=== PATIENT | female | born 1940 | race Caucasian/White ===

== ENCOUNTER 2021-04-28 00:22 | Day surgery (SDC) | payer MEDICARE, SELFPAY ==
[2021-04-18 09:59] VITALS: BMI 23.8
[2021-04-28 07:44] VITALS: BP 140/62; PULSE 73; RESP 18; O2SAT 100; BMI 23.3
--- NOTE | 2021-04-28 07:45 | WPDANESEPPF ---
Anes - Initial Pre Proc Eval Procedure: Operation Date: 04/28/21 08:30 Proposed Procedures p Screening Colonoscopy - Mio Salvador MD Date/Time: 04/28/21 07:45 Surgeon: Mio Salvador MD Pre Op Diagnosis: neoplasm screening Patient Data Age: 80 Gender: F Height: 1.57 m Weight: 59 kg Allergies Allergy/AdvReac Type Severity Reaction Status Date / Time No Known Allergies Allergy Unknown Verified 04/28/21 07:43 Home Medications Medication Instructions Recorded Confirmed Type albuterol 90 mcg INHALATION QID PRN 04/18/21 04/28/21 History cholecalciferol (vitamin D3) 25 mcg PO DAILY 04/18/21 04/28/21 History [Vitamin D3] duloxetine 30 mg PO DAILY 04/18/21 04/28/21 History mometasone-formoterol [Dulera] 1 inh INHALATION DAILY 04/18/21 04/28/21 History Patient hx anesthesia problems: none Family hx anesthesia problems: none Results Review: All pre-operative results and documents have been reviewed as part of the pre-operative evaluation. [facility] Past Medical History Medical History Asthma Social History Social History Smoking packs per day: 1 Smoking cigarettes per day: 20.0 Years smoked: 25 Smoking pack-years: 25.00 Smoking status: Current every day smoker Tobacco type: cigarettes and e-cigarettes/vaping Additional smoking assessment comments: Vapes now. Alcohol intake: current Living arrangements: with family Spiritual care concerns: No Anes - Eval Final PreProcedure Day of Procedure 04/28/21 07:45 Patient weight: normal Heart: regular rate and rhythm Lungs: wheezes (scattered) Airway: Mallampati scale class II Neurological: alert and oriented Last oral intake: >/= 8 hours ASA classification: III Emergent: no Anesthetic plan: proceed Anesthesia type and monitoring: general GIVS and standard monitoring Results Review: All pre-operative results and documents have been reviewed as part of the pre-operative evaluation. Informed Consent: The patient's anesthetic plan and its attendant risks and benefits were discussed with the patient/family/POA. Questions were solicited and answers provided to the satisfaction of the patient/family/POA.
[2021-04-28 07:53] VITALS: PULSE 84; RESP 18
[2021-04-28] MEDS: ALBUTEROL SULFATE NEB 2.5 MG/3 ML INH INHALATION (07:53)
[2021-04-28 08:04] VITALS: PULSE 81; RESP 16
[2021-04-28] MEDS: LACTATED RINGERS 1,000 ML 150 ML IV CONT (08:13)
--- NOTE | 2021-04-28 08:22 | WPDGICN ---
Assessment and Plan Assessment and plan (1) Encounter for screening colonoscopy: Code(s): Z12.11 - Encounter for screening for malignant neoplasm of colon Status: Acute Assessment and Plan: Patient presents for screening colonoscopy. She may have had polyps in the past occasionally has anal seepage. Plan is for fiber supplementation. Further recommendations will be given after colonoscopy P GI Consult Note Consult date/time: 04/28/21 08:22 HPI: Brittnee Guerrero is a 80 year old female Presents for screening colonoscopy. She reports having had polyps more than 10 years ago. Currently denies abdominal pain her weight appetite are normal. she complains of a occasional anal seepage. She attributes to this to episiotomy after previous . Family history is noncontributory. She has had no bleeding. Review of Systems Review of Systems: All systems reviewed & are unremarkable except as noted in HPI and below PMFSH Past Medical History Medical History Asthma Social History Social History Smoking packs per day: 1 Smoking cigarettes per day: 20.0 Years smoked: 25 Smoking pack-years: 25.00 Smoking status: Current every day smoker Tobacco type: cigarettes and e-cigarettes/vaping Additional smoking assessment comments: Vapes now. Alcohol intake: current Living arrangements: with family Spiritual care concerns: No Meds Home Medications and Allergies Home Medications Medication Instructions Recorded Confirmed Type albuterol 90 mcg INHALATION QID PRN 04/18/21 04/28/21 History cholecalciferol (vitamin D3) 25 mcg PO DAILY 04/18/21 04/28/21 History [Vitamin D3] duloxetine 30 mg PO DAILY 04/18/21 04/28/21 History mometasone-formoterol [Dulera] 1 inh INHALATION DAILY 04/18/21 04/28/21 History Allergies Allergy/AdvReac Type Severity Reaction Status Date / Time No Known Allergies Allergy Unknown Verified 04/28/21 07:43 Vital Signs Vital Signs - 24 hr 04/28/21 07:44 04/28/21 07:53 04/28/21 08:04 Pulse Rate 73 84 81 Respiratory Rate 18 18 16 Blood Pressure 140/62 Pulse Oximetry 100 Exam Narrative: Physical exam reveals patient be alert. Vital signs stable. HEENT exam is unremarkable. Patient is anicteric. Lungs are clear to auscultation and percussion. Heart is without murmur or extra sounds. Abdominal exam bowel sounds are present soft nontender with no organomegaly. Digital external rectal exam is normal.
[2021-04-28 08:56] VITALS: BP 101/63; PULSE 75; RESP 17; O2SAT 100
[2021-04-28 09:06] VITALS: BP 127/76; PULSE 70; RESP 23; O2SAT 100
[2021-04-28 09:16] VITALS: BP 152/68; PULSE 57; RESP 17; O2SAT 100
== END 2021-04-28 09:26 | disposition home or self-care (01) ==
PROVIDERS: PCP Family Medicine; Visit Provider Internal Medicine Gastroenterology
PROC: 0DJD8ZZ Inspection of Lower Intestinal Tract, Via Natural or Artificial Opening Endoscopic (ICD-10-PCS; CPT 45378; principal; 2021-04-28 08:30)
DX: Z12.11 Encounter for screening for malignant neoplasm of colon (principal); K64.8 Other hemorrhoids; K57.30 Diverticulosis of large intestine without perforation or abscess without bleeding; K63.5 Polyp of colon; F17.290 Nicotine dependence, other tobacco product, uncomplicated; Z79.51 Long term (current) use of inhaled steroids; J45.909 Unspecified asthma, uncomplicated
CPT/HCPCS: 45385; 88305; 94640; J2704; J7120

== ENCOUNTER 2021-11-17 12:03 | Outpatient (CLI) | payer MEDICARE, OTHER, SELFPAY ==
--- NOTE | ~2021-11-17 | XR_ITS ---
XR chest 2V DATE: 11/17/2021 12:38 INDICATION: COPD TECHNIQUE: 2 views COMPARISON: None FINDINGS: There is bilateral hyperinflation consistent with history of COPD. No pulmonary infiltrate or consolidation, pleural effusion or pulmonary vascular congestion or pneumo thorax. Normal heart size. Aortic arch calcification. Diffuse osteopenia. IMPRESSION: Bilateral hyperinflation consistent with COPD No active cardiac pulmonary disease Aortic atherosclerosis Osteopenia Reviewed, dictated and finalized at location A.
[2021-11-17 12:21] LABS: Eosinophils Absolute Auto 0.19 K/mm3 (0.02-0.50); Eosinophils Percent Auto 1.9 % (1.0-6.0); Hematocrit 42.4 % (35.0-42.0); Hemoglobin 13.8 g/dL (11.7-13.8); Immature Granulocyte Absolute 0.04 K/mm3 (0.00-0.00); Immature Granulocyte Percent A 0.4 % (0.0-0.0); Lymphocytes Absolute Auto 3.12 K/mm3 (1.10-4.50); Lymphocytes Percent Auto 31.4 % (18.0-42.0); Mean Corpuscular HGB Conc 32.5 g/dL (32.0-36.0); Mean Corpuscular Hemoglobin 31.4 pg (27.0-31.0); Mean Corpuscular Volume 96.6 fL (78.0-102.0); Mean Platelet Volume 9.3 fl (9.2-11.8); Monocytes Absolute Auto 0.42 K/mm3 (0.10-0.90); Monocytes Percent Auto 4.2 % (2.0-11.0); Neutrophils Absolute Auto 6.1 K/mm3 (1.7-7.2); Neutrophils Percent Auto 61.1 % (50.0-70.0); Platelet Count Result 349 K/mm3 (150-420); Red Blood Count 4.39 M/mm3 (4.20-5.40); Red Cell Distribution Width 13.3 % (11.6-14.4); White Blood Count 9.9 K/mm3 (4.8-10.8)
[2021-11-17 12:25] LABS: Add Urine Microscopic? NO; Appearance Urine Clear (Clear); Bilirubin Urine Negative (Negative); Blood Urine Negative (Negative); Color Urine Light Yellow (Yellow); Glucose Urine UA Negative (Negative); Ketones Urine Negative (Negative); Leukocyte Esterase Ur Negative LEU/UL (Negative); Nitrate Urine Negative (Negative); Protein Urine Negative (Negative); Urobilinogen Urine 0.2 mg/dL (0.2-1.0)
[2021-11-17 13:05] LABS: Alanine Aminotransferase 23 U/L (14-59); Albumin Level 4.3 g/dL (3.4-5.0); Alkaline Phosphatase 43 U/L (46-116); Anion Gap 7 mmol/L (8-16); Aspartate Amino Transferase 16 U/L (15-37); Bilirubin,Total 0.7 mg/dL (0.00-1.00); Blood Urea Nitrogen 16 mg/dL (7-18); Calcium 9.9 mg/dL (8.5-10.1); Carbon Dioxide 30 mmol/L (21-32); Chloride 102 mmol/L (98-108); Cholesterol 236 mg/dL (0-200); Estimated Glomerular Filt Rate 55; Free T3 2.47 pg/mL (2.18-3.98); Free T4 Free Thyroxine 0.89 ng/dL (0.76-1.46); Glucose 100 mg/dL (70-99); HDL Direct 56 mg/dL (40-60); LDL Cholesterol Calculated 166 mg/dL (<130); Osmolality Calculated 289 mOsm/kg (285-295); Sodium 139 mmol/L (136-145); Thyroid Stimulating Hormone 2.07 uIU/mL (0.36-3.74); Total Protein 7.7 g/dL (6.4-8.2); Triglycerides 71 mg/dL (0-150)
[2021-11-17 13:07] LABS: CRP < 0.2 mg/dL (0.0-0.9)
[2021-11-20 22:58] LABS: Vitamin D 1,25 (OH)2 Total 38 pg/mL (18-72); Vitamin D2 1,25 (OH)2 <8 pg/mL; Vitamin D3 1,25 (OH)2 38 pg/mL
[2021-11-21 14:50] LABS: Parathyroid Intact 23 pg/mL (14-64); Vitamin D 25 Hydroxy 54 ng/mL (30-100)
== END 2021-11-17 12:04 | disposition home or self-care (01) ==
LOC: CHSLAB 12:09
PROVIDERS: PCP Internal Medicine; Visit Provider Internal Medicine
DX: R42 Dizziness and giddiness (principal); I67.9 Cerebrovascular disease, unspecified; J45.909 Unspecified asthma, uncomplicated; J44.9 Chronic obstructive pulmonary disease, unspecified; E83.52 Hypercalcemia; Z13.6 Encounter for screening for cardiovascular disorders
CPT/HCPCS: 36415; 71046; 80053; 80061; 81003; 82306; 82652; 83970; 84439; 84443; 84481; 85025; 86140; 93005

== ENCOUNTER 2021-11-28 12:26 | Outpatient (CLI) | payer MEDICARE, OTHER, SELFPAY ==
--- NOTE | ~2021-11-28 | US_ITS ---
EXAMINATION: US carotid duplex BI DATE: 11/28/2021 12:54 INDICATION: Dizziness TECHNIQUE: Grayscale, color Doppler, and pulsed Doppler images of the cervical carotid arteries were obtained. The degree of vessel stenosis is placed in one of the following categories: normal, <50%, 5 0-69%, >=70% but less than near-occlusion, near-occlusion, or total occlusion. Note that percent sten osis relative to normal distal artery lumen diameter is indirectly measured from velocity measurement s as described by Abel, et al. Radiology 2003; 229:340-346. Notes: Normal: Peak systolic velocity <125 centimeters/sec and no plaque <50%. Peak systolic velocity <125 ( EDV <40; ICA/CCA PSV ratio <2.0; used these factors only a tandem lesions or low cardiac output or co ntralateral disease) 50-69 %: PSV 125-230 (EDV 40-100; ratio 2-4) >= 70% but less than near occlusion: PSV greater than 230 (EDV > 100; ratio> 4.0) Near Occlusion: PSV that is variable; markedly narrowed lumen Occlusion: Absent flow on color/spectral Doppler and no lumen on marin scale. COMPARISON: None. FINDINGS: RIGHT: The right common carotid artery (CCA) peak systolic velocity (PSV) is 94 cm/s. The right internal car otid artery (ICA) PSV is 94 cm/s. The right ICA end-diastolic velocity (EDV) is 24 cm/s. The right IC A/CCA PSV ratio is 1.0. The external carotid artery (ECA) PSV is 93 cm/s. There is antegrade flow in the right vertebral artery. LEFT: The left CCA PSV is 1:30 cm/s. The left ICA PSV is 92 cm/s. The left ICA EDV is 21 cm/s. The left ICA /CCA PSV ratio is 0.7. The ECA PSV is 94 cm/s. There is antegrade flow in the left vertebral artery. IMPRESSION: 1. Less than 50% stenosis in the right internal carotid artery by sonographic criteria. 2. Less than 50% stenosis in the left internal carotid artery by sonographic criteria. Reviewed, dictated and finalized at location A. IMPRESSION: 1. Less than 50% stenosis in the right internal carotid artery by sonographic pili forte. 2. Less than 50% stenosis in the left internal carotid artery by sonographic nery foy.
== END 2021-11-28 12:27 | disposition home or self-care (01) ==
LOC: CHSIMG 12:29
PROVIDERS: PCP Internal Medicine; Visit Provider Internal Medicine
DX: R42 Dizziness and giddiness (principal); I67.9 Cerebrovascular disease, unspecified; J45.909 Unspecified asthma, uncomplicated; J44.9 Chronic obstructive pulmonary disease, unspecified; E83.52 Hypercalcemia
CPT/HCPCS: 93880

== ENCOUNTER 2022-03-23 15:35 | Emergency (ER) | payer MEDICARE, OTHER, SELFPAY ==
[2022-03-23] VITALS (21 sets, daily range): BP systolic 62–92; BP diastolic 44–75; PULSE 62–73; RESP 12–27; TEMP 35.8; O2SAT 95–100
--- NOTE | 2022-03-23 15:46 | ED.DIZZY ---
HPI - Dizziness General Chief Complaint: Dizziness Stated Complaint: dizzy spell/sick to stomach/shaky Time Seen by Provider: 03/23/22 15:37 Source: patient and RN notes reviewed Mode of arrival: ambulatory Limitations: no limitations History of Present Illness MD elicited complaint: dizziness and lightheadedness Onset (ago): day(s) (2) Description: lightheadedness Exacerbating factors: movement/ambulation Relieving factors: rest Associated symptoms: nausea, vomiting, malaise and other (diarrhea) Related Data Home Medications Medication Instructions Recorded Confirmed albuterol 90 mcg/actuation aerosol 90 mcg inhalation QID PRN Dyspnea 04/18/21 03/23/22 inhaler cholecalciferol (vitamin D3) 25 25 mcg PO DAILY 04/18/21 03/23/22 mcg (1,000 unit) tablet (Vitamin D3) duloxetine 30 mg capsule,delayed 30 mg PO DAILY 04/18/21 03/23/22 release mometasone-formoterol HFA 50 mcg-5 1 inh inhalation DAILY 04/18/21 03/23/22 mcg/actuation aerosol inhaler (Dulera) Allergies Allergy/AdvReac Type Severity Reaction Status Date / Time No Known Allergies Allergy Unknown Verified 03/23/22 16:04 Review of Systems Review of Systems: All systems reviewed & are unremarkable except as noted in HPI and below Constitutional: Constitutional: Reports fatigue Respiratory: Respiratory: Reports cough Genitourinary: Genitourinary: Denies dysuria PMFSH Past Medical History Medical History (Updated 03/23/22 @ 17:59 by Mio Griffith MD) Asthma Depression Surgical History Surgical History (Updated 03/23/22 @ 16:16 by Mio Griffith MD) No pertinent past surgical history Social History Social History Smoking packs per day: 1 Smoking cigarettes per day: 20.0 Years smoked: 25 Smoking pack-years: 25.00 Smoking status: Current every day smoker Tobacco type: cigarettes and e-cigarettes/vaping Additional smoking assessment comments: Vapes now. Alcohol intake: current Spiritual care concerns: No Exam Const: General: healthy appearing, no acute distress and alert Nutritional Appearance: well nourished and thin Orientation/consciousness: patient oriented x3 Limitations: no limitations HENMT: Head: normal to inspection Face and sinus: normal facial exam Eyes: Conjunctivae: conjunctivae normal Pupils: Equal, round and reactive pupils present EOM: EOMs intact bilaterally Neck: Neck: normal visual inspection Resp: Effort & Inspection: normal respiratory effort Auscultation: clear to auscultation bilaterally Cardio: Rate: regular rate Rhythm: regular rhythm GI: GI Palp: Yes Soft to palpation and No Tenderness to palpation present (GI) Auscultation: normal bowel sounds Back/Spine/Pelvis: Cervical Spine: cervical ROM normal Thoracic/Lumbar Spine: thoraco-lumbar ROM normal Skin: General skin exam: normal color Rashes: no rashes Neuro: General: patient oriented x3, moves all extremities, no focal motor deficits and CN's II-XI intact bilaterally Cranial nerves: Yes Nystagmus not present Speech: normal speech Gait exam (Neuro): Normal gait present Extrem: General: normal to inspection and no clubbing, cyanosis or edema Psych: Mental Status: mental status grossly normal Affect: normal affect Attitude: cooperative Course Course Emergency Course: Patient given 2 L normal saline in her blood pressure remains low. All of her labs do not show any significant abnormalities I believe her elevated white count goes along with her elevated hemoglobin and her elevated kidney functions showing some dehydration. Patient advised to eat a brat diet and plenty of fluids. Follow up with her primary care physician any worsening symptoms or her dizziness persists. Vital Signs Vital signs: Vital Signs Temperature 35.8 C L 03/23/22 15:40 Pulse Rate 64 03/23/22 15:40 Respiratory Rate 16 03/23/22 15:40 Blood Pressure 92/44 L 03/23/22 15:
[2022-03-23] MEDS: SODIUM CHLORIDE 0.9% IV 1,000 ML 1000 ML (16:01)
[2022-03-23] MEDS: SODIUM CHLORIDE 0.9% IV 1,000 ML 999 ML IV CONT ×2 (16:01→16:48)
[2022-03-23 16:09] LABS: Basophils Absolute Auto 0.07 K/mm3 (0.00-0.10); Basophils Percent Auto 0.5 % (0.0-1.0); Eosinophils Absolute Auto 0.24 K/mm3 (0.02-0.50); Eosinophils Percent Auto 1.6 % (1.0-6.0); Hematocrit 41.7 % (35.0-42.0); Hemoglobin 13.9 g/dL (11.7-13.8); Immature Granulocyte Absolute 0.14 K/mm3 (0.00-0.00); Immature Granulocyte Percent A 0.9 % (0.0-0.0); Lymphocytes Absolute Auto 3.19 K/mm3 (1.10-4.50); Lymphocytes Percent Auto 21.2 % (18.0-42.0); Mean Corpuscular HGB Conc 33.3 g/dL (32.0-36.0); Mean Corpuscular Hemoglobin 32.2 pg (27.0-31.0); Mean Corpuscular Volume 96.5 fL (78.0-102.0); Mean Platelet Volume 9.5 fl (9.2-11.8); Monocytes Absolute Auto 0.94 K/mm3 (0.10-0.90); Monocytes Percent Auto 6.3 % (2.0-11.0); Neutrophils Absolute Auto 10.4 K/mm3 (1.7-7.2); Neutrophils Percent Auto 69.5 % (50.0-70.0); Platelet Count Result 335 K/mm3 (150-420); Red Blood Count 4.32 M/mm3 (4.20-5.40); Red Cell Distribution Width 13.2 % (11.6-14.4)
--- NOTE | 2022-03-23 16:20 | PC.NURSE ---
PT NOTED TO HYPOTENSIVE UPON ASSESSMENT, ERP NOTIFIED. IV SITE ESTABLISHED AND IVF INFUSING ORDERED. AT BEDSIDE. PT DENIES ANY COMPLAINTS. HR 66, NAD NOTED. WILL CONTINUE TO MONITOR.
[2022-03-23 16:24] LABS: Alanine Aminotransferase 26 U/L (14-59); Albumin Level 3.7 g/dL (3.4-5.0); Alkaline Phosphatase 38 U/L (46-116); Anion Gap 10 mmol/L (8-16); Aspartate Amino Transferase 13 U/L (15-37); Bilirubin,Total 0.4 mg/dL (0.00-1.00); Blood Urea Nitrogen 27 mg/dL (7-18); Calcium 9.1 mg/dL (8.5-10.1); Carbon Dioxide 26 mmol/L (21-32); Chloride 102 mmol/L (98-108); Estimated CRCL calculation 25 ml/min; Estimated Glomerular Filt Rate 39; Glucose 134 mg/dL (70-99); Magnesium 2.1 mg/dL (1.8-2.4); Osmolality Calculated 293 mOsm/kg (285-295); Potassium 3.6 mmol/L (3.5-5.1); Sodium 138 mmol/L (136-145); Total Protein 6.7 g/dL (6.4-8.2)
[2022-03-23 16:25] LABS: CRP < 0.2 mg/dL (0.0-0.9)
--- NOTE | 2022-03-23 16:29 | PC.NURSE ---
WARM BLANKET PROVIDED.
[2022-03-23 16:45] LABS: SARS-CoV-2 RNA PCR Negative (Negative)
--- NOTE | 2022-03-23 16:51 | PC.NURSE ---
NO CHANGE IN PT STATUS, ANOTHER WARM BLANKET PROVIDED. REMAINS AT BEDSIDE AND PT DENIES COMPLAINTS. WILL CONTINUE TO MONITOR.
[2022-03-23 17:33] LABS: Troponin I 12.1 ng/L (0.00-60.4)
--- NOTE | 2022-03-23 17:46 | PC.NURSE ---
NO CHANGE IN PT STATUS. HAS LEFT, IS TO RETURN. WILL CONTINUE TO MONITOR.
== END 2022-03-23 18:05 | disposition home or self-care (01) ==
PROVIDERS: Emergency Provider Emergency Medicine; PCP Internal Medicine
DX: E86.0 Dehydration (principal); K52.9 Noninfective gastroenteritis and colitis, unspecified; Z20.822 Contact with and (suspected) exposure to COVID-19; F17.200 Nicotine dependence, unspecified, uncomplicated
CPT/HCPCS: 36415; 80053; 83735; 84484; 85025; 86140; 96360; 96361; 99284; C9803; J7030; U0003; U0005

== ENCOUNTER 2022-03-27 12:14 | Outpatient (CLI) | payer MEDICARE, OTHER, SELFPAY ==
[2022-03-27 12:33] LABS: Basophils Absolute Auto 0.09 K/mm3 (0.00-0.10); Basophils Percent Auto 0.7 % (0.0-1.0); Eosinophils Absolute Auto 0.25 K/mm3 (0.02-0.50); Hemoglobin 14.2 g/dL (11.7-13.8); Immature Granulocyte Absolute 0.08 K/mm3 (0.00-0.00); Immature Granulocyte Percent A 0.6 % (0.0-0.0); Lymphocytes Absolute Auto 2.79 K/mm3 (1.10-4.50); Lymphocytes Percent Auto 22.2 % (18.0-42.0); Mean Corpuscular HGB Conc 32.3 g/dL (32.0-36.0); Mean Corpuscular Hemoglobin 31.3 pg (27.0-31.0); Mean Corpuscular Volume 97.1 fL (78.0-102.0); Mean Platelet Volume 9.4 fl (9.2-11.8); Monocytes Absolute Auto 0.68 K/mm3 (0.10-0.90); Monocytes Percent Auto 5.4 % (2.0-11.0); Neutrophils Absolute Auto 8.7 K/mm3 (1.7-7.2); Neutrophils Percent Auto 69.1 % (50.0-70.0); Platelet Count Result 336 K/mm3 (150-420); Red Blood Count 4.53 M/mm3 (4.20-5.40); Red Cell Distribution Width 13.2 % (11.6-14.4); White Blood Count 12.6 K/mm3 (4.8-10.8)
[2022-03-27 12:48] LABS: Albumin Level 3.9 g/dL (3.4-5.0); Alkaline Phosphatase 47 U/L (46-116); Anion Gap 9 mmol/L (8-16); Aspartate Amino Transferase 14 U/L (15-37); Bilirubin,Total 0.8 mg/dL (0.00-1.00); Blood Urea Nitrogen 16 mg/dL (7-18); Carbon Dioxide 27 mmol/L (21-32); Chloride 100 mmol/L (98-108); Estimated Glomerular Filt Rate 54; Glucose 110 mg/dL (70-99); Osmolality Calculated 284 mOsm/kg (285-295); Potassium 3.9 mmol/L (3.5-5.1); Sodium 136 mmol/L (136-145); Total Protein 7.4 g/dL (6.4-8.2)
[2022-03-27 12:57] LABS: Alanine Aminotransferase 25 U/L (14-59)
[2022-03-29 11:19] LABS: Cortisol Random 7.3 mcg/dL (***)
== END 2022-03-27 12:15 | disposition home or self-care (01) ==
LOC: CHSLAB 12:18
PROVIDERS: PCP Internal Medicine; Visit Provider Internal Medicine
DX: R79.89 Other specified abnormal findings of blood chemistry (principal); D72.829 Elevated white blood cell count, unspecified; R42 Dizziness and giddiness
CPT/HCPCS: 36415; 80053; 82533; 85025

== ENCOUNTER 2022-04-14 07:47 | Outpatient (CLI) | payer MEDICARE, OTHER, SELFPAY ==
--- NOTE | ~2022-04-14 | MR_ITS ---
EXAMINATION: MR brain/brain stem wo con DATE: 04/14/2022 08:55 INDICATION: Dizziness TECHNIQUE: Magnetic resonance imaging (MRI) of the brain and brainstem was performed without intraven ous contrast. Sequences included sagittal and axial T1-weighted SE, axial diffusion-weighted FS SE, a xial T2*-weighted GRE, axial T2-weighted FLAIR Propeller, and axial T2-weighted Propeller. Apparent d iffusion coefficient (ADC) maps were created. COMPARISON: None. FINDINGS: No acute intracranial hemorrhage, infarction, mass or mass effect. No ventriculomegaly or m idline shift. There are scattered moderate periventricular and subcortical white matter changes, most likely related to small vessel ischemic disease (microangiopathy). Structures of the posterior fossa including 7/8th cranial nerve complexes are normal. Orbits are symmetric without disconjugate gaze. Paranasal sinuses are unremarkable. Midline sagittal images demonstrate a normal corpus callosum and craniovertebral junction. No abnormality of the sella turcica. IMPRESSION: 1. No acute intracranial abnormality. 2: Chronic age-related findings. Reviewed, dictated and finalized at location A.
[2022-04-14 08:41] LABS: Appearance Urine Cloudy (Clear); Bilirubin Urine Negative (Negative); Color Urine Light Yellow (Yellow); Glucose Urine UA Negative (Negative); Hematocrit 41.5 % (35.0-42.0); Hemoglobin 13.4 g/dL (11.7-13.8); Ketones Urine Negative (Negative); Leukocyte Esterase Ur 2+ (Negative); Mean Corpuscular HGB Conc 32.3 g/dL (32.0-36.0); Mean Corpuscular Hemoglobin 31.2 pg (27.0-31.0); Mean Corpuscular Volume 96.7 fL (78.0-102.0); Mean Platelet Volume 8.9 fl (9.2-11.8); Nitrate Urine Positive (Negative); Platelet Count Result 346 K/mm3 (150-420); Protein Urine Negative (Negative); Red Blood Count 4.29 M/mm3 (4.20-5.40); Red Cell Distribution Width 13.3 % (11.6-14.4); Specific Grav Ur 1.015 (1.010-1.020); Urobilinogen Urine 0.2 mg/dL (0.2-1.0); White Blood Count 10.3 K/mm3 (4.8-10.8)
[2022-04-14 08:45] LABS: Add Urine Microscopic? YES; Bacteria Urine 3+ /hpf; Blood Urine Trace-Intact (Negative); RBC Urine 0-2 /hpf (0-2); Renal Epithelial Cells Urine Few /hpf; Squamous Epithelial Cell Urine Few /hpf (Few); Transitional Epi Cells Urine Few /hpf; WBC Urine 21-30 /hpf (0-3)
[2022-04-14 08:51] LABS: Alanine Aminotransferase 24 U/L (14-59); Albumin Level 3.5 g/dL (3.4-5.0); Alkaline Phosphatase 51 U/L (46-116); Anion Gap 4 mmol/L (8-16); Aspartate Amino Transferase 13 U/L (15-37); Bilirubin,Total 0.7 mg/dL (0.00-1.00); Blood Urea Nitrogen 17 mg/dL (7-18); Calcium 8.6 mg/dL (8.5-10.1); Carbon Dioxide 30 mmol/L (21-32); Chloride 105 mmol/L (98-108); Estimated Glomerular Filt Rate 49; Glucose 106 mg/dL (70-99); Osmolality Calculated 289 mOsm/kg (285-295); Potassium 4.1 mmol/L (3.5-5.1); Sodium 139 mmol/L (136-145); Total Protein 6.5 g/dL (6.4-8.2)
[2022-04-14 09:07] LABS: Band Neutrophils Percent 0 % (0-6); Basophils Percent Manual 1 % (0-1); Eosinophils Absolute Manual 0.92 K/mm3 (0.02-0.5); Eosinophils Percent Manual 9 % (1-6); Lymphocytes Absolute Manual 3.91 K/mm3 (1.1-4.5); Lymphocytes Percent Manual 38 % (18-44); Monocytes Absolute Manual 0.51 K/mm3 (0.1-0.90); Monocytes Percent Manual 5 % (3-9); Neutrophils Absolute Manual 4.84 K/mm3 (1.7-7.2); Neutrophils Percent Manual 47 % (46-73); Platelet Estimate Adequate (Adequate); Total Cells Counted 100
== END 2022-04-14 07:48 | disposition home or self-care (01) ==
LOC: CHSIMG 07:49
PROVIDERS: PCP Internal Medicine; Visit Provider Internal Medicine
DX: R79.89 Other specified abnormal findings of blood chemistry (principal); D72.829 Elevated white blood cell count, unspecified; R42 Dizziness and giddiness
CPT/HCPCS: 36415; 70551; 80053; 81001; 85025

== ENCOUNTER 2023-04-15 09:30 | Outpatient (CLI) | payer MEDICARE, SELFPAY ==
[2023-04-15 09:50] LABS: Hematocrit 40.7 % (35.0-42.0); Hemoglobin 13.2 g/dL (11.7-13.8); Immature Granulocyte Percent A 0.3 % (0.0-0.0); Lymphocytes Percent Auto 39.6 % (18.0-42.0); Mean Corpuscular HGB Conc 32.4 g/dL (32.0-36.0); Mean Corpuscular Hemoglobin 31.8 pg (27.0-31.0); Mean Corpuscular Volume 98.1 fL (78.0-102.0); Mean Platelet Volume 8.8 fl (9.2-11.8); Monocytes Percent Auto 5.5 % (2.0-11.0); Neutrophils Percent Auto 47.2 % (50.0-70.0); Platelet Count Result 304 K/mm3 (150-420); Red Blood Count 4.15 M/mm3 (4.20-5.40); Red Cell Distribution Width 13.1 % (11.6-14.4); White Blood Count 7.2 K/mm3 (4.8-10.8)
[2023-04-15 09:51] LABS: Basophils Percent Auto 1.4 % (0.0-1.0); Eosinophils Absolute Auto 0.43 K/mm3 (0.02-0.50); Immature Granulocyte Absolute 0.02 K/mm3 (0.00-0.00); Lymphocytes Absolute Auto 2.86 K/mm3 (1.10-4.50); Neutrophils Absolute Auto 3.4 K/mm3 (1.7-7.2)
[2023-04-15 12:47] LABS: Alanine Aminotransferase 50 U/L (14-59); Albumin Level 3.8 g/dL (3.4-5.0); Alkaline Phosphatase 40 U/L (46-116); Anion Gap 9 mmol/L (8-16); Aspartate Amino Transferase 28 U/L (15-37); Bilirubin,Total 0.7 mg/dL (0.00-1.00); Blood Urea Nitrogen 14 mg/dL (7-18); Calcium 9.3 mg/dL (8.5-10.1); Carbon Dioxide 28 mmol/L (21-32); Chloride 105 mmol/L (98-108); Estimated Glomerular Filt Rate 57; Glucose 98 mg/dL (70-99); Osmolality Calculated 294 mOsm/kg (285-295); Potassium 4.4 mmol/L (3.5-5.1); Sodium 142 mmol/L (136-145); Total Protein 6.6 g/dL (6.4-8.2)
== END 2023-04-15 09:31 | disposition home or self-care (01) ==
LOC: CHSLAB 09:39
PROVIDERS: PCP Internal Medicine; Visit Provider Internal Medicine Cardiovascular Disease
DX: R06.00 Dyspnea, unspecified (principal)
CPT/HCPCS: 36415; 80053; 85025

== ENCOUNTER 2023-04-24 10:33 | Outpatient (CLI) | payer MEDICARE, SELFPAY ==
[2023-04-24 11:00] LABS: Prothrombin Time 10.6 Seconds (9.50-12.10)
== END 2023-04-24 10:34 | disposition home or self-care (01) ==
LOC: CHSLAB 10:36
PROVIDERS: PCP Internal Medicine
DX: I70.8 Atherosclerosis of other arteries (principal)
CPT/HCPCS: 36415; 85610

== ENCOUNTER 2023-06-11 11:48 | Outpatient (CLI) | payer MEDICARE, SELFPAY ==
--- NOTE | ~2023-06-11 | XR_ITS ---
EXAMINATION: XR lumbar spine min 4V DATE: 06/11/2023 12:23 INDICATION: Low back pain TECHNIQUE: Anteroposterior, lateral, and bilateral oblique views of the lumbar spine, and cone-down l ateral view of the lumbosacral junction were obtained. COMPARISON: None. FINDINGS: There are 20 degrees of thoracolumbar levoscoliosis. There are 4 mm of anterolisthesis of L 3 on L4. There is no fracture. There is moderate loss of intervertebral disc space height at L4-5. Th ere is moderate facet joint osteoarthritis from L3-4 through L5-S1. Calcified atherosclerosis is note d. The vertebral body heights are maintained. IMPRESSION: 1. Moderate lumbar spondylosis without acute findings. Reviewed, dictated and finalized at location F. MANAGER
--- NOTE | ~2023-06-11 | XR_ITS ---
XR hip LT min 2V 06/11/2023 12:23 Indication: Left hip pain Procedure: 2 views left hip Comparison: No prior studies for comparison. Findings: No fracture or traumatic malalignment. No significant soft tissue abnormality. There is ath erosclerosis. There are pelvic phleboliths. There is lower lumbar spondylosis. There is a healed left inferior pubic ramus fracture. Impression: 1: No acute fracture. Reviewed, dictated and finalized at location L. EL OPERATOR Impression: 1: No acute fracture.
== END 2023-06-11 11:49 | disposition home or self-care (01) ==
LOC: CHSIMG 11:50
PROVIDERS: PCP Internal Medicine; Visit Provider Nurse Practitioner Family
DX: M54.50 Low back pain, unspecified (principal); M25.552 Pain in left hip; M43.06 Spondylolysis, lumbar region
CPT/HCPCS: 72110; 73502

== ENCOUNTER 2024-04-17 12:12 | Outpatient (CLI) | payer MEDICARE, SELFPAY ==
[2024-04-17 12:33] LABS: Appearance Urine Clear (Clear); Basophils Absolute Auto 0.11 K/mm3 (0.00-0.10); Basophils Percent Auto 1.2 % (0.0-1.0); Bilirubin Urine Negative (Negative); Blood Urine Trace-intact (Negative); Color Urine Light Yellow (Yellow); Eosinophils Absolute Auto 0.21 K/mm3 (0.02-0.50); Eosinophils Percent Auto 2.3 % (1.0-6.0); Glucose Urine UA Negative (Negative); Hematocrit 40.6 % (35.0-42.0); Hemoglobin 13.5 g/dL (11.7-13.8); Immature Granulocyte Absolute 0.03 K/mm3 (0.00-0.00); Immature Granulocyte Percent A 0.3 % (0.0-0.0); Ketones Urine Negative (Negative); Leukocyte Esterase Ur Negative LEU/UL (Negative); Lymphocytes Absolute Auto 2.93 K/mm3 (1.10-4.50); Lymphocytes Percent Auto 32.3 % (18.0-42.0); Mean Corpuscular HGB Conc 33.3 g/dL (32-36); Mean Corpuscular Hemoglobin 31.5 pg (27.0-31.0); Mean Corpuscular Volume 94.9 fL (78.0-102.0); Mean Platelet Volume 9.4 fl (9.2-11.8); Monocytes Absolute Auto 0.45 K/mm3 (0.10-0.90); Neutrophils Absolute Auto 5.33 K/mm3 (1.70-7.20); Neutrophils Percent Auto 58.9 % (50.0-70.0); Nitrate Urine Negative (Negative); Platelet Count Result 287 K/mm3 (150-420); Protein Urine Negative (Negative); Red Blood Count 4.28 M/mm3 (4.20-5.40); Urobilinogen Urine 0.2 mg/dL (0.2-1.0); White Blood Count 9.1 K/mm3 (4.8-10.8)
[2024-04-17 12:48] LABS: Add Urine Microscopic? YES; RBC Urine 0-2 /hpf (0-2); Squamous Epithelial Cell Urine Few /hpf (Few); WBC Urine 0-3 /hpf (0-3)
[2024-04-17 12:49] LABS: Bacteria Urine 1+ /hpf
[2024-04-17 14:18] LABS: Alanine Aminotransferase 34 U/L (14-59); Albumin Level 4.1 g/dL (3.4-5.0); Alkaline Phosphatase 43 U/L (46-116); Anion Gap 11 mmol/L (4-12); Aspartate Amino Transferase 21 U/L (15-37); Bilirubin,Total 0.7 mg/dL (0.00-1.00); Blood Urea Nitrogen 20 mg/dL (7-18); Calcium 9.4 mg/dL (8.5-10.1); Carbon Dioxide 28 mmol/L (21-32); Chloride 102 mmol/L (98-108); Cholesterol 187 mg/dL (0-200); Estimated Glomerular Filt Rate 53; Glucose 97 mg/dL (70-99); HDL Direct 60 mg/dL (40-60); LDL Cholesterol Calculated 114 mg/dL (<130); Osmolality Calculated 294 mOsm/kg (285-295); Sodium 141 mmol/L (136-145); Triglycerides 64 mg/dL (0-150); Vitamin B12 445 pg/mL (193-986)
[2024-04-17 14:28] LABS: CRP < 0.5 mg/dL (0.0-0.9)
[2024-04-21 01:59] LABS: Red Blood Cell Folate 582 ng/mL RBC (>280)
[2024-04-22 08:34] LABS: Methylmalonic Acid 164 nmol/L (85-423)
== END 2024-04-17 12:13 | disposition home or self-care (01) ==
PROVIDERS: PCP Internal Medicine; Visit Provider Internal Medicine
DX: I73.9 Peripheral vascular disease, unspecified (principal); R32 Unspecified urinary incontinence; E53.8 Deficiency of other specified B group vitamins; R41.81 Age-related cognitive decline; Z79.899 Other long term (current) drug therapy
CPT/HCPCS: 36415; 80053; 80061; 81001; 82607; 82747; 83921; 84443; 85025; 86140

== ENCOUNTER 2024-04-23 09:45 | Outpatient (CLI) | payer MEDICARE, SELFPAY ==
[2024-04-23 09:58] VITALS: BP 131/74; PULSE 72; RESP 14; TEMP 36.6; O2SAT 100; BMI 22.6
[2024-04-23] MEDS: DENOSUMAB 60 MG/ML SYRINGE SUB-Q (10:10)
--- NOTE | 2024-04-23 10:28 | PC.NURSE ---
Patient here for every 6 month Prolia injection. Reports has received injection x2 last year without problems. Education given. No concerns voiced. Injection administered. SEE MAR/patient care notes.
== END 2024-04-23 10:37 | disposition home or self-care (01) ==
PROVIDERS: PCP Internal Medicine; Visit Provider Internal Medicine
DX: M81.0 Age-related osteoporosis without current pathological fracture (principal)
CPT/HCPCS: 96372; J0897

== ENCOUNTER 2024-10-27 11:50 | Outpatient (CLI) | payer MEDICARE, SELFPAY ==
--- NOTE | ~2024-10-27 | XR_ITS ---
XR chest 2V Ordering provider: Javier Dalal MD History: 84 years Female with . chronic cough X 2 months . Comparison: None. FINDINGS: MEDIASTINUM: The cardiac silhouette is not enlarged. LUNGS: No infiltrates, effusions or pneumothorax. OTHER: No free air under the diaphragm. Levoscoliosis in the lumbar area. Degenerative spine. IMPRESSION: No acute cardiopulmonary pathology. Reviewed, dictated and finalized at location A.
[2024-10-27 12:33] LABS: Hematocrit 40.5 % (35.0-42.0); Hemoglobin 13.1 g/dL (11.7-13.8); Mean Corpuscular HGB Conc 32.3 g/dL (32-36); Mean Corpuscular Hemoglobin 31.2 pg (27.0-31.0); Mean Corpuscular Volume 96.4 fL (78.0-102.0); Platelet Count Result 355 K/mm3 (150-420); Red Cell Distribution Width 13.3 % (11.6-14.4); White Blood Count 8.7 K/mm3 (4.8-10.8)
--- OUTSIDE RECORDS SUMMARY | 2024-10-27 13:18 | XMS_ITS | Encounter Summary ---
Author Organization [facility] Address [address] [place] [address] Phone Care Team Providers Care Clinical Services Director Name Role Phone Sylvester Mcarthur MD Primary Care Provider [phone] Javier Dalal MD Primary Care Provider [phone] Encounter Details Date Type Department Care Team (Late st Contact Info) Description 07/29/2018 Telephone [facility] Cardiology [address] [facility] [address] [place] [address] [place] [address] Hussein Pantoja Social History Tobacco Use Types Packs/Day Years Used Date Smoking Tobacco: Every Day Comments Unknown Sex and Gender Information Value Date Recorded Sex Assigned at Not on file 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
--- OUTSIDE RECORDS SUMMARY | 2024-10-27 13:18 | XMS_ITS | Encounter Summary ---
Author Organization [facility] Address [address] [place] [address] Care Team Providers Care Produce Team Lead Name Role Phone Unavailable Primary Care Provider Unavailabl e Encounter Details Date Type Department Care Team (Late st Contact Info) Description 02/12/2007 Outpatient Historical [facility] Support Serv. (Adt Cardiology-[facility]) [address] 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
--- OUTSIDE RECORDS SUMMARY | 2024-10-27 13:18 | XMS_ITS | Encounter Summary ---
Author Organization [facility] Address [address] [place] [address] Care Team Providers Care Kitchen Lead Name Role Phone Javier Dalal MD Primary Care Provider [phone] Encounter Details Date Type Department Care Team (Late st Contact Info) Description 08/21/2022 Documentation [facility] OP Cardiac Testing [address] [place] [address] Kassy Felton NP [address] [place] [address] Social History Tobacco Use Types Packs/Day Years Used Date Smoking Tobacco: Former Cigarettes 1 50 0 08/15/1968 - 08/15/2018 Smokeless Tobacco: Never Alcohol Use Standard Drinks/Week Comments Yes 0 (1 standard drink = 0.6 oz pur e alcohol) Socially AUDIT-C Answer Date Recorded Frequency of Alcohol Consumption Monthly or less 10/13/2018 Average Number of Drinks Not on file 019 Frequency of Binge Drinking Not on file 09/20 Comments Unknown Sex and Gender Information Value Date Recorded Sex Assigned at Not on file Legal Sex Female 10:43 AM MANAGER CONVENTION Gender Identity Female 11/22/2018 5:02 PM CDT Sexual Orientation Straight 11/22/2018 5: 02 PM CDT Occupation Industry Job Start Date Job End Date retired Not on file Not on file Not on file documented as of this encounter Miscellaneous Notes * Assessment & Plan Note - Kassy Felton NP - 08/21/2022 9:17 AM MANAGER CONVENTION Associated Problem(s): Cardiac and Vasculature Clarified with Dr. Barrientos this morning that pt is ordered for a stress echocardiogram although perDr. Barrientos's note it is written as echocardiogram not stress echo. Spoke with Dr. Barrientos who wishes to proceed with stress echo. GER CONVENTION documented in this encounter Plan of Treatment Not on file documented as of this encounter Visit Diagnoses Not on filedocumented in this encounter Care Teams Kitchen Lead Relationship Specialty Start Date End Date Javier Dalal MD PCP - General Internal Medicine 04/16/22 documented as of this encounter
--- OUTSIDE RECORDS SUMMARY | 2024-10-27 13:18 | XMS_ITS | Clinical Summary ---
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
--- OUTSIDE RECORDS SUMMARY | 2024-10-27 13:18 | XMS_ITS | Continuity of Care Document ---
Author Organization [facility] Address [address] [facility] [address] [place] [phone] Phone Care Team Providers Care Hand Polisher Name Role Phone Mikey OD, Miguelito Unavailable Unavailable Allergies, Adverse Reactions, Alerts Substance Reaction Status Criticality No Known allergies Medications Medication Instructions Dosage Effective Dates (start - stop) Status Comments Restasis 0.05 % eye drops in a dropperette instill 1 drop by ophthalmic route every 12 hours into affected eye(s) 1.00 drop - Active Prozac 10 mg capsule take 2 capsule (20MG) by oral route every day 20 MG - Active Lotemax 0.5 % eye gel instill 1 Drop by ophthalmic route 4 times every day for 2 weeks in to both eyes 1 Drop - No Longer Active Procedures Procedure Date Office/outpatient Visit, Est Eye Photography Fundus Photography W/ Report Tear Osmolarity Microfluidic Analysis Tear Osmolarity Microfluidic Analysis Refraction Vision Svcs Frames Purchases Frames Lens Package Progressive Lens Per Lens Tint Photochromatic, Plastic Anti-reflective Coating Office/outpatient Visit, Est Eye Photography Fundus Photography W/ Report Tear Osmolarity Microfluidic Analysis Yan Tear Osmolarity Microfluidic Analysis QuantifEye Refraction Vision Svcs Frames Purchases Progressive Lens Per Lens Eye Exam & Treatment Eye Photography Sunglasses Sales Tax Eye Exam Established Pt Eye Promise Supplements Sales Tax Office/outpatient Visit, Est Fundus Photography W/ Report QuantifEye Refraction Office/outpatient Visit, Est Fundus Photography W/ Report Refraction QuantifEye Office/outpatient Visit, Est Refraction QuantifEye Fundus Photography W/ Report Office/outpatient Visit, Est QuantifEye/Optomap Advance Directives Directive Yes / No Effective Date File Name Resuscitation Not Answered N/A N/A Life Support Not Answered N/A N/A Intubation Not Answered N/A N/A Antibiotics Not Answered N/A N/A IV Fluid Support Not Answered N/A N/A Tube Feed Not Answered N/A N/A Other Directive N/A N/A WARNING:The information contained in this section is historical and is provided for information only and does not constitute a legal document or any assurance that the information is still accurate. Please verify the information with the goel of the legal document before using it for clinical purposes. Encounters Encounter Description Practice Location Reason(s) For Visit Diagnoses Date Provider Providers Copied on Encounter Office/outpat ient Visit, Est [facility], [address], [place], [place], [id number], [place] tel:[phone] [facility] blurry vision (chief complaint) PUNCTATE KERATITISTEAR FILM INSUFFIC NOSDRUSEN (DEGENERATIVE) 4 Mikey OD Miguelito. [address] [facility], [address], [place], [address], [place]. tel:[phone] Referring Provider: Manny Lorenzo OD P, [address] [facility], [place], [address]. tel:[phone] [facility], [address], [place], [place], [id number], [place] tel:[phone] [facility] No Information 4 [facility] . [address] [facility], [address], [place], [place], [id number], [place]. tel:[phone] Referring Provider: Miguelito Kong, [address] [facility] [address], [place], [address]. tel:[phone] ing Provider: Winston Antunez, [address] [facility], [place], [address]. Office/outpat ient Visit, Est [facility], [address], [place], [place], [id number], [place] tel:[phone] [facility] No Information 3 Bj Bryant. [address] [facility], [place], [place], [id number], [place]. tel:[phone] Referring Provider: Manny Lorenzo OD P, [address] [facility], [place], [address]. tel:[phone] [facility], [address], [place], [place], [address], [place] tel:[phone] [facility] No Information 3 [facility] . [address] [facility], [address], [place], [place], [id number], [place]. tel:[phone] Referring Provider: Manny Lorenzo OD P, [address] [facility], [place], [address]. tel:[phone] [facility], [address], [place], [place], [address], [place] tel:[phone] [facility] No Information 2 Mulqueeny OD Manny. [address] [facility], [place], [place], [address], [place]. tel:[phone] Referring Provider: Manny Lorenzo OD P, [address] [facility], [place], [address]. tel:[phone] [facility], [address] [place] [address] [address], [place], [place], [address], [place] tel:[phone] [facility] No Information 2 [facility] . [address] [facility] [address], [address], [place], [place], [address], [place]. tel:[phone] Referring Provider: Manny Lorenzo OD P, [address] [facility], [place], [address]. tel:[phone] ing Provider: Kevin Rivera, [address] [facility], [place], [address]. tel:[phone] [facility], [address] [place] [address] [address], [place], [place], [address], [place] tel:[phone] [facility] No Information 2 Mulqueeny OD Manny. [address] [facility], [place], [place], [address], [place]. tel:[phone] Referring Provider: Manny Lorenzo OD P, [address] [facility], [place], [address]. tel:[phone] Office/outpat ient Visit, [facility], [address] [place] [address] [address], [place], [place], [address], [place] tel:[phone] [facility] No Information 2 Mulqueeny OD Manny. [address] [facility], [place], [place], [address], [place]. tel:[phone] Referring Provider: Manny Lorenzo OD P, [address] [facility], [place], [address]. tel:[phone] Office/outpat ient Visit, [facility], [address] [place] [address] [address], [place], [place], [address], tel:[phone] [facility] No Information Sep-0 7-201 0 Mulqueeny OD Manny. [address] [facility], [place], [id number], [place]. tel:[phone] Referring Provider: Manny Lorenzo OD P, [address] [facility], [place], [address]. tel:[phone] Office/outpat ient Visit, [facility] [address] [place] [address] [address], [place], [place], [address], [place] tel:[phone] [facility] No Information Nov-1 9-200 8 Mulqueeny OD Manny. [address] [facility], [place], [place], [address], [place]. tel:[phone] Referring Provider: Manny Lorenzo OD P, [address] [facility], [place], [address]. tel:[phone] Office/outpat ient Visit, [facility], [address] [place] [address] [address], [place], [place], [address], [place] tel:[phone] [facility] No Information Oct-1 5-200 7 Mulqueeny OD Manny. [address] [facility], [place], [id number], [place]. tel:[phone] Referring Provider: Manny Loernzo OD P, [address] [facility], [place], [address]. tel:[phone] Family History Family Member Type Diagnosis Age At Onset Mother Problem (finding) Heart Disease Grandmother Problem (finding) Diabetes mellitus Payers Payer name Insurance type Covered libertarian ID Authoraudreya tion(s) [place] [id number] [place] [id number] Social History Type Description Quantity Date Captured Comments Alcohol Use Details No Caffeine Use Details No Tobacco Use Status No Information Smoking Status Current every day smoker Smoking Tobacco Use Details Cigarette: No Details Available Cigarette: 0 Packs per day Sex Female Chief Complaint And Reason For Visit From encounter dated '09/03/2013 13:00'. blurry vision (chief complaint) Reason For Referral Reason For Referral No Information History Of Present Illness Encounter Date Complaint History Of Prese nt Illness No Information Functional Status Date Functional Assessmen t No Information Instructions Date Instruction Additional Infor horace - Return in 1 year jaime Lorenzo O.D. for Complete Exam. 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 Cats also playing a role. Also needs updated Rx disc lasik retreat, ctl, or updated specs to reduce blur OUdisc rx shift, rec updating specseyes are possibly straining with current specsdisc cataracts progression will cause rx to continue to shiftdisc dry eye will cause blurbegin Restasis BID OUbegin Lotemax QID OU [id number] lutein MVconsider EZ Tears Educational materials provided:AMD, Cataract and Dry eye syndrome. Related to DRUSEN (DEGENERATIVE) Assessments Type Assessment Date No Information Patient Care Teams Name Effective Dates (start - stop) Status Members No Information
--- OUTSIDE RECORDS SUMMARY | 2024-10-27 13:18 | XMS_ITS | Clinical Summary ---
Author Organization [facility] Address [address] [place] [address] Care Team Providers Care Hired Help Name Role Phone Sylvester Mcarthur MD Primary Care Provider [phone] Allergies No known active allergies Medications ALPRAZolam 0.25 MG tablet Take 0.25 mg by mouth daily as needed. 1 09/10/2017 Active fluticasone propionate 50 MCG/ACT nasal spray 1 spray by Nasal route daily. Active naproxen 500 MG tablet Take 500 mg by mouth 2 (two) times daily as needed. Active primidone 50 MG tablet Take 50 mg by mouth nightly at bedtime. Active fluoxetine 40 MG capsule Take 40 mg by mouth daily. 2 08/27/2017 Active aspirin EC (ASPIRIN) 81 MG EC tablet Take 81 mg by mouth daily. Active B Complex Cap capsule Take 1 capsule by mouth daily. Active Biotin 5000 MCG Cap Take 1 tablet by mouth daily. Active omega-3 fatty acid 1000 MG capsule Take 1,640 mg by mouth daily. Active Magnesium Malate 1250 (141.7 Mg) MG Tab Take 1 tablet by mouth daily. Active Calcium-Magnesi um-Vitamin D (CITRACAL CALCIUM+D OR) Take 1 tablet by mouth daily. Active Windom-3 Fatty Acids (EPA) 1000 MG Cap Take 1 tablet by mouth daily. Active Active Problems Problem Noted Date Diagnosed Date Shortness of breath Sleep apnea Raynaud's disease Social History Tobacco Use Types Packs/Day Years Used Date Smoking Tobacco: Every Day Cigarettes 0.5 20 Smokeless Tobacco: Never Alcohol Use Standard Drinks/Week Comments Yes 0 (1 standard drink = 0.6 oz pur e alcohol) AUDIT-C Answer Date Recorded Frequency of Alcohol Consumption 2-4 times a sat07/25/2018 Average Number of Drinks 1 or 2 019 Frequency of Binge Drinking Never 10/2018 Comments Unknown Sex and Gender Information Value Date Recorded Sex Assigned at Not on file Legal Sex Female 10:08 AM MEAT AND SEAFOOD CLERK Gender Identity Not on file Sexual Orientation Not on file Occupation Industry Job Start Date Job End Date Not on file Not on file Not on file Not on file Last Filed Vital Signs Vital Sign Reading Time Taken Comments Blood Pressure 108/66 07/25/2018 1:20 PM MEAT AND SEAFOOD CLERK Pulse 88 07/25/2018 1:20 PM MEAT AND SEAFOOD CLERK Temperature - - Respiratory Rate 16 07/25/2018 1:20 PM MEAT AND SEAFOOD CLERK Oxygen Saturation - - Inhaled Oxygen Concentration - - Weight 63 kg (139 lb) 07/31/2018 10:00 AM MEAT AND SEAFOOD CLERK Height 157.5 cm (5' 2 ) 07/31/2018 10:00 AM MEAT AND SEAFOOD CLERK Body Mass Index 25.42 07/31/2018 10:00 AM MEAT AND SEAFOOD CLERK Plan of Treatment Health Maintenance Due Date Last Done Comments DTaP, Tdap and Td Vaccines ( 1 - Tdap) 1961 Zoster Vaccines (1 of 2) 1992 Annual Medicare Wellness Visit 2007 Pneumococcal Vaccine: 65+ Ye ars (2 of 2 - PPSV23 or PCV20) 08/26/2017 07/01/2017 RSV Immunization or 60+ Years (1 - 1-dose 75+ series) 2017 COVID-19 Vaccine (1 - 2023-2 5 season) 2024 Dexa Scan (General) Completed 05/28/2019 Meningococcal B Vaccine Aged Out No l onger eligible based on patient's age to complete this topic Meningococcal Vaccine Aged Out No manuel praful eligible based on patient's age to complete this topic RSV Immunizations Under 20 Months Aged Out No longer eligible based on patient's age to complete this topic Insurance MEDICARE [employer] Care Teams Hired Help Relationship Specialty Start Date End Date Sylvester Mcarthur MD PCP - General FAMILY PRACTICE 07/24/18
--- OUTSIDE RECORDS SUMMARY | 2024-10-27 13:18 | XMS_ITS | Encounter Summary ---
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 Gender Identity Not on file Sexual Orientation Not on file Occupation Industry Job Start Date Job End Date Not on file Not on file Not on file Not on file documented as of this encounter Plan of Treatment Not on file documented as of this encounter Procedures Procedure Name Priority Date/Time Associated Diagnosis Comments CBC W/ MANUAL DIFF (OUTSIDE) Routine 07/21/2018 CMP (OUTSIDE LAB) Routine 07/21/2018 TROPONIN, QUANT Routine 07/21/2018 documented in this encounter Results * TROPONIN, QUANT (07/21/2018) TROPONIN I <0.012 07/21/2018 Result Naveed Mcarthur MD LABORATORY Final Result * CMP (OUTSIDE LAB) (07/21/2018) SODIUM S/P/B 138 POTASSIUM S/P/B 4.1 CHLORIDE S/P/B 104 CO2 26.0 BUN 15 CREATININE S/P/B 1.00 0.5 - 1.0 EGFR AFR. AMER. 69 <=90 EGFR NON-AFR. AMER. 57 <=90 CALCIUM S/P/B 9.8 GLUCOSE 112 mg/dL TOTAL PROTEIN S/P/B 8.2 ALBUMIN S/P/B 4.4 3.5 - 5.0 AST 29 ALT 35 ALKALINE PHOSPHATASE S/P/B 71 BILIRUBIN TOTAL S/P/B 0.8 07/21/2018 Result Naveed Mcarthur MD LAB-OUTSIDE/ABSTRACTED Final R esult * CBC W/ MANUAL DIFF (OUTSIDE) (07/21/2018) WBC 14.1 RBC 4.41 HGB 13.7 HCT 41.2 MCV 93.4 MCH 31.1 MCHC 33.3 RDW 13.4 PLT 453 NEUTROPHILS % 9.6 LYMPHOCYTES % 22.5 MONOCYTES % 5.8 EOSINOPHILS % 0.3 BASOPHILS % 0.8 ABS. NEUTROPHILS 9.6 ABS. LYMPHOCYTES 3.2 ABS. MONOCYTES 0.8 ABS. EOSINOPHILS 0.3 ABS. BASOPHILS 0.11 07/21/2018 Result Naveed Mcarthur MD LABORATORY Final Result documented in this encounter Visit Diagnoses Not on filedocumented in this encounter Care Teams Vertical Contour Band Saw Operator Relationship Specialty Start Date End Date Sylvester Mcarthur MD PCP - General FAMILY PRACTICE 07/24/18 Maria Elena Ortiz MD CARDIOVASCULAR DISEASE 07/24/18 documented as of this encounter
--- OUTSIDE RECORDS SUMMARY | 2024-10-27 13:18 | XMS_ITS | Encounter Summary ---
Author Organization [employer] Address [address] [place] [address] Care Team Providers Care Business Machines Teacher Name Role Phone Unavailable Primary Care Provider Unavailabl e Encounter Details Date Type Department Care Team (Latest Contact Info) Description 02/24/2007 Outpatient Historical [facility] Teddy Ross MD [address] [facility] [address] [place] [address] Other Diseases of Nasal Cavity and Sinuses (Primary Dx) Social History Tobacco Use Types Packs/Day Years Used Date Smoking Tobacco: Never Assessed Comments Unknown Sex and Gender Information Value Date Recorded Sex Assigned at Not on file Legal Sex Female 3:48 AM HEMATOLOGIST Gender Identity Not on file Sexual Orientation Not on file documented as of this encounter Plan of Treatment Not on file documented as of this encounter Procedures Procedure Name Priority Date/Time Associated Diagnosis Comments HEMOGLOBIN AND HEMATOCRIT Routine 02/12/2007 12:13 PM CDT BASIC METABOLIC PANEL Routine 02/12/2007 12:13 PM CDT documented in this encounter Results * (ABNORMAL) BASIC METABOLIC PANEL (02/12/2007 12:13 PM CDT) GLUCOSE 92 65 - 99 mg/dL INTERFACE SYSTEM CREATININE 0.96(H) 0.51 - 0.95 mg/dL INTERFACE SYSTEM BUN 23(H) 6 - 20 mg/dL INTERFACE SYSTEM SODIUM 139 135 - 145 mmol/L INTERFACE SYSTEM POTASSIUM 4.1 3.5 - 4.9 mmol/L INTERFACE SYSTEM CHLORIDE 102 96 - 108 mmol/L INTERFACE SYSTEM CO2 30 22 - 30 mmol/L INTERFACE SYSTEM GFR, >60 >=60 mL/min/1. 7 sq meter INTERFACE SYSTEM GFR 59(L) >=60 mL/min/1. 7 sq meter INTERFACE SYSTEM Comment: Estimated GFR rate interpretative information for both Americans and non- Americans is available on the [facility] Intranet at: [email or web address] Select: Lab Policies and Procedures Select: Reference Ranges - GFR CALCIUM 11.0(H) 8.4 - 10.2 mg/dL INTERFACE SYSTEM Comment:Verified by repeat a nalysis. 02/12/2007 12:1 3 PM CDT Teddy Ross MD CHEMISTRY ORDERABLES Edited Performing Organization Address [facility] Phone Number INTERFACE SYSTEM Refer to clinic/hospital department * HEMOGLOBIN AND HEMATOCRIT (02/12/2007 12:13 PM CDT) HEMOGLOBIN 14.0 11.8 - 14.8 g/dL INTERFACE SYSTEM HEMATOCRIT 40.0 35.5 - 44.0 % INTERFACE SYSTEM 02/12/2007 12:1 3 PM CDT Teddy Ross MD HEMATOLOGY ORDERABLES Edited Performing Organization Address [facility] Phone Number INTERFACE SYSTEM Refer to clinic/hospital department documented in this encounter Visit Diagnoses Diagnosis Other diseases of nasal cavity and sinuses(478.19)- Primary Other diseases of nasal cavity and sinuses documented in this encounter
--- OUTSIDE RECORDS SUMMARY | 2024-10-27 13:18 | XMS_ITS | Encounter Summary ---
Author Organization [facility] Address [address] [place] [address] Phone Care Team Providers Care Courtroom Reporter Name Role Phone Sylvester Mcarthur MD Primary Care Provider [phone] Javier Dalal MD Primary Care Provider [phone] Encounter Details Date Type Department Care Team (Late st Contact Info) Description 10/16/2018 Orders Only [facility] Scanning, Provider Social History Tobacco Use Types Packs/Day Years [...] on file Legal Sex Female 10:43 AM CHILD AND FAMILY COUNSELOR Gender Identity Female 11/22/2018 5:02 PM CDT Sexual Orientation Straight 11/22/2018 5: 02 PM CDT Occupation Industry Job Start Date Job End Date retired Not on file Not on file Not on file documented as of this encounter Plan of Treatment Not on file documented as of this encounter Procedures Procedure Name Priority Date/Time Associated Diagnosis Comments SCAN - LABS 10/16/2018 documented in this encounter Results * SCAN - LABS (10/16/2018) us Provider Scanning Final Result documented in this encounter Visit Diagnoses Not on filedocumented in this encounter Care Teams Courtroom Reporter Relationship Specialty Start Date End [place] [address] PCP - General Emergency Medicine 07/24/18 04/15/22 [place] [address] PCP - General Internal Medicine 04/16/22 documented as of this encounter
--- OUTSIDE RECORDS SUMMARY | 2024-10-27 13:18 | XMS_ITS | Clinical Summary ---
Author Organization [address] Address [facility], [facility] [place] [address] Care Team Providers Care Clinical Advisor Name Role Phone Javier Dalal MD Primary Care Provider [phone] Allergies No known active allergies Medications ALPRAZolam (XANAX) 0.25 mg tablet Take 1 tablet (0.25 mg total) by mouth daily as needed 09/10/19 18 Active FLUoxetine (PROzac) 20 mg capsule Take 1 capsule (20 mg total) by mouth daily Active coenzyme Q10 200 mg capsule Take 1 capsule (200 mg total) by mouth daily Active multivitamin tabletIndications :Vitamin Deficiency Prevention Take 1 tablet by mouth wrecking crane engine operator before breakfast Active ascorbic acid (vitamin C) 1,000 mg tablet Take 1 tablet (1,000 mg total) by mouth daily Active ergocalciferol, vitamin D2, (VITAMIN D2 ORAL) Take 5,000 Int'l Units/1.7m2 by mouth wrecking crane engine operator before breakfast Active rizatriptan COOK ENCHILADA (MAXALT-COOK ENCHILADA) 10 mg disintegrating tabletIndications :Migraine Take 1 tablet (10 mg total) by mouth once as needed for migraine May repeat in 2 hours if unresolved. Do not exceed 30 mg in 24 hours. 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 Calcium+D b.i.d., HX: Tymlos November 2018-05/2019 DC for hypercalcemia once. FX HX: Pelvis, October 2018 sacrum Hypercalcemia 06/01/2019 Raynaud's disease 11/19/2018 Sleep apnea 11/19/2018 Shortness of breath 11/19/2018 Arthralgia of shoulder 04/23/2012 Encounters Date Type Department Care Team Description 09/23/2024 Orders Only [facility] [address] [facility] [place] Advanced Medicine 5th [place] [address] [place] [address] Felipa Khalil DNP Age-related osteoporosis without current pathological fracture (Primary Dx) from Last 3 Months Immunizations Immunization Administration Dates Next Due Moderna SARS-CoV-2 Monovalent Vaccination (12+ Y RS) 08/13/2020,07/16/2020 Surgical History Surgery Date Site/Laterality Comments NOSE SURGERY PARTIAL HYSTERECTOMY PARATHYROID GLAND SURGERY 07/22/2006 - 07/21/2007 Medical History Medical History Date Comments Intractable migraine without aura with status migrainosus Common Migraine (Without Aur a) Anxiety History of osteopenia Asthma HLD (hyperlipidemia) Osteoporosis Family History Medical History Relation Name Comments Coronary artery disease Brother Scleroderma Daughter 1 Lupus Daughter 2 Cortez's thyroiditis Daughter 3 Heart failure Father Coronary artery disease Mother Dementia Sister Hip fracture Neg Hx Osteoporosis Neg Hx Relation Name Status Comments Brother Daughter 1 Daughter 2 Daughter 3 Father Mother Sister Social History Tobacco Use Types Packs/Day Years Used Date Smoking Tobacco: Former Vaping Smokeless Tobacco: Never Tobacco Cessation:Counseling Given: Not Answered Alcohol Use Standard Drinks/Week Comments Yes 0 (1 standard drink = 0.6 oz pur e alcohol) Socially AUDIT-C Answer Date Recorded Q1: How often do you have a drink containing alc ohol? 2-3 times a week 04/29/2023 Q2: How many drinks containi ng alcohol do you have on a typical day when you are drinking? 3 or 4 04/29/2023 Q3: How often do you have si x or more drinks on one occasion? Never 04/29/2023 Personal Safety Answer Date Recorded Have you ever been in or are you currently in a harmful physical or emotional relationship or is someone making you feel afraid or unsafe? Denies 04/29/2023 Comments No Sex and Gender Information Value Date Recorded Sex Assigned at Not on file Legal Sex Female 10:43 AM FUSE MAKER Gender Identity Female 11/22/2018 5:02 PM CDT Sexual Orientation Straight 11/22/2018 5: 02 PM CDT Occupation Industry Job Start Date Job End Date retired Not on file Not on file Not on file Obstetrics History Para Term AB IAB SAB Ectopic Multiple Livin g Live Births 4 4 4 4 Date Outcome GA Total Labor Labor/2nd/3rd Weight Sex Type Anes PTL Jessica A1 A5 Name Clin Term Term Term Term Last Filed Vital Signs Vital Sign Reading Time Taken Comments Blood Pressure 118/70 12/13/2023 1:28 PM CDT Pulse 62 12/13/2023 1:28 PM CDT Temperature 36.4 C (97.6 F) 08/03/2019 12:48 PM FUSE MAKER Respiratory Rate 9 04/29/2023 5:00 PM CDT Oxygen Saturation 99% 12/13/2023 1:28 PM CDT Inhaled Oxygen Concentration - - Weight 55.8 kg (123 lb) 12/13/2023 1:28 PM CDT Height 154.9 cm (5' 1 ) 12/13/2023 1:28 PM CDT Body Mass Index 23.24 12/13/2023 1:28 PM CDT Plan of Treatment Health Maintenance Due Date Last Done Comments Depression Screening 1940 Fall Risk Assessment 1940 DTaP/Tdap/Td Vaccine (1 - Tdap) 1953 Hepatitis B Screening 1960 Zoster Vaccine (1 of 2) 1992 Pneumococcal vaccine 65+ (2 of 2 - PPSV23) 07/01/2018 07/01/2017 Well Visit 65+ 03/15/2024 03/15/2023 Covid-19 Vaccine (3 - 2023-2 5 season) 2024 08/13/2020, 07/16/2020 Influenza Vaccine (Season Ended) 2025 05/28/20 17 Osteoporosis Screening-Bone Density Scan 10/03/2025 10/04/2023, 08/30/2022, 02/03/2021, Additional history exists Medical Devices Implanted Type Area User Experience Analyst Device Identifier Shelf Expiration Date Model / Serial / Lot Medtronic Inc Visi-Pro 8mm 37mm 135cm Radiopaque Balloon Expand Radial Strength - S0 - [id number] Implanted:Qty : 1 on 04/29/2023 by Flex Salazar MD at Stent Left: Subclavian Medtronic Inc 10/22/2025 [id number] / 0 / [id number] Ter[employer] Chuck Angio-Seal Vip 6fr Closere Device [id number] - S0 - [id number] Implanted:Qty : 1 on 04/29/2023 by Flex Salazar MD at Vascular Closure Device Right: Femoral Ter[employer]o [employer] Chuck 10/20/2023 [id number] / 0 / [id number] Procedures Procedure Name Priority Date/Time Associated Diagnosis Comments DEXA TBS AXIAL SKELETON BONE DENSITY 1 OR MORE SITES Schedule Routine, Read Routine (OP Routine) 10/04/2023 10:29 AM CDT Age-related osteoporosis without current pathological fracture from Last 3 Months or Most Recently Relevant to Health Maintenance Results * Dexa TBS Axial Skeleton Bone Density 1 or more sites (10/04/2023 10:29 AM CDT) Anatomical Region Laterality Modality Wrist, Body N/A Radiographic Sonali ging Narrative 10/09/2023 2:02 PM CDT Patient Name: Brittnee Guerrero Date of : 1940 Date of scan: 10/04/2023 Bone mineral density was performed on a Stickybits Discovery Densitometer. Based on machine cross-calibration and precision studies the least significant changes of this densitometer is 0.024 g/cm2 at the spine, 0.020 g/cm2 at the total proximal femur, and 0.014g/cm2 at the forearm. HISTORY: This is a 83 y.o. postmenopausal female with a history of osteoporosis. She reports that she has quit smoking. Her smoking use included vaping. She has never used smokeless tobacco. Currently on treatment with calcium, vitamin D, and denosumab (Prolia), previously treated with abaloparatide (Tymlos), and current complaint of back pain. INDICATIONS: Menopause status, treatment monitoring, and history of osteoporosis. FINDINGS: BONE MINERAL DENSITY OF THE LUMBAR SPINE Bone Mineral Density (BMD) of the lumbar spine was measured from L1-L4 and the average density was calculated to be 1.036 gm/cm2. This corresponds to a T-score (standard deviations from the mean of young adults) of -0.1. When compared to the previous study of 08/30/22 there has been a 0.022 gm/cm (2.2%) increase in bone density that is considered significant. BONE MINERAL DENSITY OF THE PROXIMAL FEMUR Bone Mineral Density (BMD) of the left hip total was found to be 0.699 gm/cm2. This corresponds to a T-score standard deviations from the mean of young adults of -2.0. Femoral neck is 0.569 gm/cm2 with a T-score (standard deviations from the mean of young adults) of -2.5. When compared to the previous study of 08/30/22 there has been no significant changes in bone density. SUMMARY: Bone mineral density shows evidence of osteoporosis and marked increase risk of fracture. There has been a significant increase in bone density since previous measurement. The lumbar spine Trabecular Bone Score is 1.345 which suggests normal bone microarchitecture, compared to the general population. Final decisions regarding diagnostic or therapeutic recommendations should include BMD, TBS, additional clinical risk factors as well the clinical context of the patient. Please see attached TBS results for further details. ADDITIONAL COMMENTS: Postmenopausal Women and Men Over 50: Diagnostic criteria: Osteoporosis: BMD at or below -2.5 T-score; Osteopenia (low bone mass): BMD between -1.0 and -2.5 T-score. If the patient has a history of a fragility fracture, a fracture that occurred with trauma equivalent to a fall from a standing position or less, then the diagnosis is osteoporosis regardless of bone density. The history and data sections of the bone mineral density scan were prepared by Lucía Quach who is accredited by the International Society of Clinical Densitometry. The overall patient assessment and scan interpretation were performed by Juju Rooney M.D. who is certified by the International Society of Clinical Densitometry. [id number] Felipa Khalil [facility] DXA PROCEDURES Final Result from Last 3 Months or Most Recently Relevant to Health Maintenance Insurance [facility] Advance Directives For more information, please contact: [phone] * Full Code (Latest Code Status on File) Date Activated Date Inactivated Comments 04/29/2023 3:07 PM 04/29/2023 9:54 PM Care Teams Clinical Advisor Relationship Specialty Start Date End Date Javier Dalal MD PCP - General Internal Medicine 04/16/22
--- OUTSIDE RECORDS SUMMARY | 2024-10-27 13:18 | XMS_ITS | Referral Summary ---
Author Organization [address] Address [facility] [place] [address] Care Team Providers Care Systems Test Technician Name Role Phone Javier Dalal MD Primary Care Provider [phone] Encounters Date Type Department Care Team Description 09/23/2024 Orders Only [place] [id number] [facility] Medicine 5th [place] [address] [place] [address] Felipa Khalil DNP Age-related osteoporosis without current pathological fracture (Primary Dx) from Last 3 Months Allergies No known active allergies Medications ALPRAZolam [...] Deficiency Prevention Take 1 tablet by mouth fashion editor before breakfast Active ascorbic acid (vitamin C) 1,000 mg tablet Take 1 tablet (1,000 mg total) by mouth daily Active ergocalciferol, vitamin D2, (VITAMIN D2 ORAL) Take 5,000 Int'l Units/1.7m2 by mouth fashion editor before breakfast Active rizatriptan MARINE EQUIPMENT ENGINEER (MAXALT-MARINE EQUIPMENT ENGINEER) 10 mg disintegrating tabletIndications :Migraine Take 1 [...] of breath 11/19/2018 Arthralgia of shoulder 04/23/2012 Immunizations Immunization Administration Dates Next Due Moderna SARS-CoV-2 Monovalent Vaccination (12+ Y RS) 08/13/2020,07/16/2020 Social History Tobacco Use Types Packs/Day Years [...] on file 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 Sex Female 10:43 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 Gender Identity Female 11/22/2018 5:02 PM CDT [...] 36.4 C (97.6 F) 08/03/2019 12:48 PM DRY END TESTER Respiratory Rate 9 04/29/2023 5:00 PM CDT Oxygen Saturation 99% 12/13/2023 1:28 PM CDT Inhaled Oxygen Concentration - - Weight 55.8 kg (123 lb) 12/13/2023 1:28 PM CDT Height 154.9 cm (5' 1 ) 12/13/2023 1:28 PM CDT Body Mass Index 23.24 12/13/2023 1:28 PM CDT Plan of Treatment Not on file Medical Devices Implanted Type Area Electronic Court Recorder Device Identifier Shelf Expiration Date Model / Serial / Lot Medtronic Inc Visi-Pro 8mm 37mm 135cm Radiopaque Balloon Expand Radial Strength - S0 - [id number] Implanted:Qty : 1 on 04/29/2023 by Flex aSlazar MD at [facility] Stent Left: Subclavian Medtronic Inc 10/22/2025 [id number] / 0 / [id number] Ter[employer] Chuck Angio-Seal Vip 6fr Closere Device [id number] - S0 - [id number] Implanted:Qty : 1 on 04/29/2023 by Flex Salazar MD at [facility] Vascular Closure Device Right: Femoral [employer] Chuck 10/20/2023 [id number] / 0 / [id number] Procedures Procedure Name Priority Date/Time Associated [...] Bone mineral density was performed on a HoloSnipSnap Discovery Densitometer. Based on machine cross-calibration and [...] by the International Society of Clinical Densitometry. [id number] Felipa Khalil [facility] DXA PROCEDURES Final Result from Last 3 Months or Most Recently Relevant to Health Maintenance Insurance MEDICARE [facility] MEDICARE MEDICARE [facility] MEDICARE [facility] Advance Directives For more information, please contact: [phone] * Full Code (Latest Code Status on File) Date Activated Date Inactivated Comments 04/29/2023 3:07 PM 04/29/2023 9:54 PM Care Teams Systems Test Technician Relationship Specialty Start Date End Date Javier Dalal MD PCP - General Internal Medicine 04/16/22
--- OUTSIDE RECORDS SUMMARY | 2024-10-27 13:18 | XMS_ITS | Encounter Summary ---
Author Organization [facility] Address [address] [place] [address] Phone Care Team Providers Care Digital Print Operator Name Role Phone Sylvester Mcarthur MD Primary Care Provider [phone] Javier Dalal MD Primary Care Provider [phone] Encounter Details Date Type Department Care Team (Late st Contact Info) Description 08/27/2018 Orders Only [facility] Scanning, Provider Social History Tobacco Use Types Packs/Day Years Used Date Smoking Tobacco: Every Day Comments Unknown Sex and Gender Information Value Date Recorded Sex Assigned at Not on file 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 Gender Identity Female 11/22/2018 5:02 PM CDT Sexual Orientation Straight 11/22/2018 5: 02 PM CDT documented as of this encounter Plan of Treatment Not on file documented as of this encounter Procedures Procedure Name Priority Date/Time Associated Diagnosis Comments PULMONARY - RESULT SCAN 08/27/2018 documented in this encounter Results * PULMONARY - RESULT SCAN (08/27/2018) Anatomical Region Laterality Modality Other us Provider Scanning Final Result documented in this encounter Visit Diagnoses Not on filedocumented in this encounter Care Teams Digital Print Operator Relationship Specialty Start [place] [address] [place] [address] PCP - General Emergency Medicine 07/24/18 04/15/22 [place] [address] [place] [address] PCP - General Internal Medicine 04/16/22 documented as of this encounter
[2024-10-27 13:56] LABS: Alanine Aminotransferase 34 U/L (14-59); Albumin Level 3.9 g/dL (3.4-5.0); Alkaline Phosphatase 56 U/L (46-116); Anion Gap 12 mmol/L (4-12); Aspartate Amino Transferase 13 U/L (15-37); Bilirubin,Total 0.7 mg/dL (0.00-1.00); Blood Urea Nitrogen 22 mg/dL (7-18); Calcium 9.4 mg/dL (8.5-10.1); Carbon Dioxide 27 mmol/L (21-32); Chloride 104 mmol/L (98-108); Estimated Glomerular Filt Rate 53; Glucose 102 mg/dL (70-99); Osmolality Calculated 299 mOsm/kg (285-295); Potassium 4.4 mmol/L (3.5-5.1); Sodium 143 mmol/L (136-145); Total Protein 6.9 g/dL (6.4-8.2)
== END 2024-10-27 11:51 | disposition home or self-care (01) ==
LOC: CHSLAB 11:54
PROVIDERS: PCP Internal Medicine; Visit Provider Internal Medicine
DX: R05.9 Cough, unspecified (principal)
CPT/HCPCS: 36415; 71046; 80053; 85027

== ENCOUNTER 2024-10-30 11:02 | Outpatient (CLI) | payer MEDICARE, SELFPAY ==
[2024-10-30 11:07] VITALS: BP 124/78; PULSE 68; RESP 14; TEMP 36.6; O2SAT 95; BMI 23.2
[2024-10-30] MEDS: DENOSUMAB 60 MG/ML SYRINGE SUB-Q (11:13)
--- NOTE | 2024-10-30 11:18 | PC.NURSE ---
Patient her for Prolia injection. Reports had no problem with last one given 6 months ago. Re-education on med given. No concerns voiced. Injection administered. SEE MAR/patient care notes. Tolerated well.
--- OUTSIDE RECORDS SUMMARY | 2024-10-30 11:34 | XMS_ITS | Encounter Summary ---
Author Organization [facility] Address [address] [place] [address] Phone Care Team Providers Care Instructor Product Inspection Name Role Phone Sylvester Mcarthur MD Primary Care Provider [phone] Javier Dalal MD Primary Care Provider [phone] Encounter Details Date Type Department Care Team (Late st Contact Info) Description 07/29/2018 Telephone [facility] Cardiology [address] [facility] Advanced [facility] 8th [place] [address] [place] [address] Hussein Pantoja Social History Tobacco Use Types Packs/Day Years Used Date Smoking Tobacco: Every Day Comments Unknown Sex and Gender Information Value Date Recorded Sex Assigned at Not on file Legal Sex Female 10:43 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
--- OUTSIDE RECORDS SUMMARY | 2024-10-30 11:34 | XMS_ITS | Encounter Summary ---
Author Organization [facility] Address [address] [place] [address] Phone Care Team Providers Care Office 365 Consultant Name Role Phone Sylvester Mcarthur MD Primary Care Provider [phone] Javier Dalal MD Primary Care Provider [phone] Encounter Details Date Type Department Care Team [...] on file Legal Sex Female 10:43 AM PROMOTION SPECIALIST Gender Identity Female 11/22/2018 5:02 PM CDT [...] on filedocumented in this encounter Care Teams Office 365 Consultant Relationship Specialty Start Date End [place] [address] PCP - General Emergency Medicine 07/24/18 04/15/22 [place] [address] PCP - General Internal Medicine 04/16/22 documented as of this encounter
--- OUTSIDE RECORDS SUMMARY | 2024-10-30 11:34 | XMS_ITS | Encounter Summary ---
Author Organization [facility] [facility] Address [address] [place] [address] Care Team Providers Care Glass Inspector Name Role Phone Unavailable Primary Care Provider Unavailabl e Encounter Details Date Type Department Care Team (Late st Contact Info) Description 02/12/2007 Outpatient Historical [facility] [address] [place] [address] Roldan Ramirez MD NO ADDRESS ON FILE Social History Tobacco Use Types Packs/Day Years Used Date Smoking Tobacco: Never Assessed Comments Unknown Sex and Gender Information Value Date Recorded Sex Assigned at Not on file Legal Sex Female 3:48 AM SPECIALTY PLANT SUPERVISOR Gender Identity Not on file Sexual Orientation Not on file documented as of this encounter Plan of Treatment Not on file documented as of this encounter Visit Diagnoses Not on filedocumented in this encounter
--- OUTSIDE RECORDS SUMMARY | 2024-10-30 11:34 | XMS_ITS | Referral Summary ---
Author Organization [address] Address [facility] [place] [address] Care Team Providers Care Piggery Worker Name Role Phone Javier Dalal MD Primary Care Provider [phone] Encounters Date Type Department Care Team Description 09/23/2024 Orders Only [place] [id number] [facility] Medicine 5th [place] [address] [place] [address] Felipa Khalil DNP Age-related osteoporosis [...] Deficiency Prevention Take 1 tablet by mouth motor coach chauffeur before breakfast Active ascorbic acid (vitamin C) 1,000 mg tablet Take 1 tablet (1,000 mg total) by mouth daily Active ergocalciferol, vitamin D2, (VITAMIN D2 ORAL) Take 5,000 Int'l Units/1.7m2 by mouth motor coach chauffeur before breakfast Active rizatriptan BAR STAFF (MAXALT-BAR STAFF) 10 mg disintegrating tabletIndications :Migraine Take 1 [...] on file Legal Sex Female 10:43 AM FISHER WEIR Gender Identity Female 11/22/2018 5:02 PM CDT [...] 36.4 C (97.6 F) 08/03/2019 12:48 PM FISHER WEIR Respiratory Rate 9 04/29/2023 5:00 PM CDT Oxygen Saturation 99% 12/13/2023 1:28 PM CDT Inhaled Oxygen Concentration - - Weight 55.8 kg (123 lb) 12/13/2023 1:28 PM CDT Height 154.9 cm (5' 1 ) 12/13/2023 1:28 PM CDT Body Mass Index 23.24 12/13/2023 1:28 PM CDT Plan of Treatment Not on file Medical Devices Implanted Type Area Methods Specialist Engineer Device Identifier Shelf Expiration Date Model / Serial / Lot Medtronic Inc Visi-Pro 8mm 37mm 135cm Radiopaque Balloon Expand Radial Strength - S0 - [id number] Implanted:Qty : 1 on 04/29/2023 by Flex Salazar MD at [facility] Stent Left: Subclavian Medtronic Inc 10/22/2025 [id number] / 0 / [id number] [employer] Chuck Angio-Seal Vip 6fr Closere Device [id number] - S0 - [id number] Implanted:Qty : 1 on 04/29/2023 by Flex Salazar MD at [facility] Vascular Closure Device Right: Femoral [employer] Chuck 10/20/2023 [id number] / 0 / [id number] Procedures Procedure Name Priority Date/Time Associated [...] Bone mineral density was performed on a HoloPLTech Discovery Densitometer. Based on machine cross-calibration and [...] by the International Society of Clinical Densitometry. [id number] Felipa Khalil [facility] DXA PROCEDURES Final Result from Last 3 Months or Most Recently Relevant to Health Maintenance Insurance MEDICARE [facility] MEDICARE MEDICARE BLUE CROSS MEDICARE SUPPLEMENT MEDICARE [facility] Advance Directives For more information, please contact: [phone] * Full Code (Latest Code Status on File) Date Activated Date Inactivated Comments 04/29/2023 3:07 PM 04/29/2023 9:54 PM Care Teams Piggery Worker Relationship Specialty Start Date End Date Javier Dalal MD PCP - General Internal Medicine 04/16/22
--- OUTSIDE RECORDS SUMMARY | 2024-10-30 11:34 | XMS_ITS | Encounter Summary ---
Author Organization [facility] Address [address] [place] [address] Care Team Providers Care Diamond Die Maker Name Role Phone Unavailable Primary Care Provider Unavailabl e Encounter Details Date Type Department Care Team (Latest Contact Info) Description 02/24/2007 Outpatient Historical [facility] Teddy Ross MD [address] [facility] [address] [place] [address] Other Diseases of Nasal Cavity and Sinuses (Primary Dx) Social History Tobacco Use Types Packs/Day Years Used Date Smoking Tobacco: Never Assessed Comments Unknown Sex and Gender Information Value Date Recorded Sex Assigned at Not on file Legal Sex Female 3:48 AM CLIP LOADING MACHINE ADJUSTER Gender Identity Not on file Sexual Orientation [...] and non- Americans is available on the [facility] Intranet at: [email or web address] Select: Lab Policies and Procedures Select: Reference Ranges - GFR CALCIUM 11.0(H) 8.4 - 10.2 mg/dL INTERFACE SYSTEM Comment:Verified by repeat a nalysis. 02/12/2007 12:1 3 PM CDT Teddy Ross MD CHEMISTRY ORDERABLES Edited Performing Organization Address [facility] Phone Number INTERFACE SYSTEM Refer to clinic/hospital department * HEMOGLOBIN AND HEMATOCRIT (02/12/2007 12:13 PM CDT) HEMOGLOBIN 14.0 11.8 - 14.8 g/dL INTERFACE SYSTEM HEMATOCRIT 40.0 35.5 - 44.0 % INTERFACE SYSTEM 02/12/2007 12:1 3 PM CDT Teddy Ross MD HEMATOLOGY ORDERABLES Edited Performing Organization Address [facility] Phone Number INTERFACE SYSTEM Refer to clinic/hospital department documented in this encounter Visit Diagnoses Diagnosis Other diseases of nasal cavity and sinuses(478.19)- Primary Other diseases of nasal cavity and sinuses documented in this encounter
--- OUTSIDE RECORDS SUMMARY | 2024-10-30 11:34 | XMS_ITS | Continuity of Care Document ---
Author Organization [facility] Address [address] [place] [address] Phone Care Team Providers Care Manager Agency Name Role Phone Mikey OD, Miguelito Unavailable [...] Copied on Encounter Office/outpat ient Visit, [facility], [address], [place], [place], [address], [place] tel:[phone] [facility] PUNCTATE KERATITISTEAR FILM INSUFFIC NOSDRUSEN (DEGENERATIVE) 4 Mikey OD Miguelito. [address], [address], [place], [address], [place]. tel:[phone] Referring Provider: Manny Lorenzo OD P, [address] [facility], [place], [address]. tel:[phone] [facility], [address], [place], [place], [address], [place] tel:[phone] [facility] No Information 4 [facility] [employer] . [address] [facility], [address], [place], [place], [address], [place]. tel:[phone] Referring Provider: Miguelito Jensen OD J, [address], [place], [address]. tel:[phone] ing Provider: Winston Antunez, [address] [facility], [place], [address]. Office/outpat ient Visit, [facility], [address], [place], [place], [address], [place] tel:[phone] [facility] No Information 3 Bj Bryant. [address] [facility], [place], [place], [address], [place]. tel:[phone] Referring Provider: Manny Lorenzo OD P, [address] [facility], [place], [address]. tel:[phone] [facility], [address], [place], [place], [address], [place] tel:[phone] [facility] No Information 3 [facility] [employer] . [address] [facility], [address], [place], [place], [address], [place]. tel:[phone] Referring Provider: Manny Lorenzo OD P, [address] [facility], [place], [address]. tel:[phone] [facility], [address], [place], [place], [address], [place] tel:[phone] [facility] No Information 2 Mulqueeny OD Manny. [address] [facility], [place], [address], [place]. tel:[phone] Referring Provider: Manny Lorenzo OD P, [address] [facility], [place], [address]. tel:[phone] [facility], [address], [place], [place], [address], [place] tel:[phone] [facility] No Information 2 [facility] [employer] . [address] [facility], [address], [place], [place], [address], [place]. tel:[phone] Referring Provider: Manny Lorenzo OD P, [address] [facility], [place], [address]. tel:[phone] ing Provider: Kevin Rivera, [address] [facility], [place], [address]. tel:[phone] [facility], [address], [place], [place], [address], [place] tel:[phone] [facility] No Information 2 Mulqueeny OD Manny. [address] [facility], [place], [address], [place]. tel:[phone] Referring Provider: Manny Lorenzo OD P, [address] [facility], [place], [address]. tel:[phone] Office/outpat ient Visit, [facility], [address], [place], [place], [address], [place] tel:[phone] [facility] No Information 2 Mulqueeny OD Manny. [address] [facility], [place], [address], [place]. tel:[phone] Referring Provider: Manny Lorenzo OD P, [address] [facility], [place], [address]. tel:[phone] Office/outpat ient Visit, [facility], [address] [place] [address] [address], [place], [place], [address], tel:[phone] [facility] No Information Sep-0 7-201 0 Mulqueeny OD Manny. [address] [facility], [place], [place], [address], [place]. tel:[phone] Referring Provider: Manny Lorenzo OD P, [address] [facility], [place], [address]. tel:[phone] Office/outpat ient Visit, [facility], [address] [place] [address] [address], [place], [place], [address], tel:[phone] [facility] No Information Nov- 9-200 8 Mulqueeny OD Manny. [address] [place], [place], [address], [place]. tel:[phone] Referring Provider: Manny Lorenzo OD P, [address] [facility], [place], [address]. tel:[phone] Office/outpat ient Visit, [facility], [address] [place] [address] [address], [place], [place], [address], [place] tel:[phone] [facility] No Information Oct-1 5-200 7 Mulqueeny OD Manny. [address] [place], [place], [address], [place]. tel:[phone] Referring Provider: Manny Lorenzo OD P, [address] [facility], [place], [address]. tel:[phone] Family History Family Member Type Diagnosis Age At Onset Mother Problem (finding) Heart Disease Grandmother Problem (finding) Diabetes mellitus Payers Payer name Insurance type Covered libertarian ID Authoriza tion(s) [place] [id number] [place] [id number] Social History Type Description Quantity Date Captured Comments Alcohol Use Details No Caffeine Use Details No Tobacco Use Status No Information Smoking Status Current every day smoker Smoking Tobacco Use Details Cigarette: No Details Available Cigarette: 0 Packs per day Sex Female Chief Complaint And Reason For Visit No Information Reason For Referral Reason For Referral No Information History Of Present Illness Encounter Date Complaint History Of Prese nt Illness No Information Functional Status Date Functional Assessmen t No Information Instructions Date Instruction Additional Infor mation PUNCTATE KERATITIS T EAR FILM INSUFFIC NOS [...] blurbegin Restasis BID OUbegin Lotemax QID OU [id number] lutein MVconsider EZ Tears Educational materials provided:AMD, Cataract and Dry eye syndrome. Related to DRUSEN (DEGENERATIVE) - Return in 1 year jaime Lorenzo O.D. for Complete Exam. Related to DRUSEN (DEGENERATIVE) Assessments Type Assessment Date No Information Patient Care Teams Name Effective Dates (start - stop) Status Members No Information
--- OUTSIDE RECORDS SUMMARY | 2024-10-30 11:34 | XMS_ITS | Clinical Summary ---
Author Organization [facility] Address [address] [place] [address] Care Team Providers Care Dice Maker Name Role Phone Sylvester Mcarthur MD Primary Care Provider [phone] Allergies No known active allergies Medications ALPRAZolam [...] Take 1 tablet by mouth daily. Active Hayti-3 Fatty Acids (EPA) 1000 MG Cap Take [...] file Legal Sex Female 10:08 AM MEAT SEAFOOD ASSOCIATE Gender Identity Not on file Sexual Orientation Not on file Occupation Industry Job Start Date Job End Date Not on file Not on file Not on file Not on file Last Filed Vital Signs Vital Sign Reading Time Taken Comments Blood Pressure 108/66 07/25/2018 1:20 PM MEAT SEAFOOD ASSOCIATE Pulse 88 07/25/2018 1:20 PM MEAT SEAFOOD ASSOCIATE Temperature - - Respiratory Rate 16 07/25/2018 1:20 PM MEAT SEAFOOD ASSOCIATE Oxygen Saturation - - Inhaled Oxygen Concentration - - Weight 63 kg (139 lb) 07/31/2018 10:00 AM MEAT SEAFOOD ASSOCIATE Height 157.5 cm (5' 2 ) 07/31/2018 10:00 AM MEAT SEAFOOD ASSOCIATE Body Mass Index 25.42 07/31/2018 10:00 AM MEAT SEAFOOD ASSOCIATE Plan of Treatment Health Maintenance Due Date [...] age to complete this topic Insurance MEDICARE [employer] MEDICARE [employer] Care Teams Dice Maker Relationship Specialty Start Date End Date Sylvester Mcarthur MD PCP - General FAMILY PRACTICE 07/24/18
--- OUTSIDE RECORDS SUMMARY | 2024-10-30 11:34 | XMS_ITS | Encounter Summary ---
Author Organization [facility] Address [address] [place] [address] Care Team Providers Care Drill Foreman Name Role Phone Javier Dalal MD Primary Care Provider [phone] Encounter Details Date Type Department Care Team (Late st Contact Info) Description 08/21/2022 Documentation [facility] [address] [facility] [address] [place] [address] Kassy Felton NP [address] [place] [address] Social History Tobacco Use Types Packs/Day Years [...] on file Legal Sex Female 10:43 AM PATIENT ACCOUNT LIAISON Gender Identity Female 11/22/2018 5:02 PM CDT Sexual Orientation Straight 11/22/2018 5: 02 PM CDT Occupation Industry Job Start Date Job End Date retired Not on file Not on file Not on file documented as of this encounter Miscellaneous Notes * Assessment & Plan Note - Kassy Felton NP - 08/21/2022 9:17 AM PATIENT ACCOUNT LIAISON Associated Problem(s): Cardiac and Vasculature Clarified with Dr. Barrientos this morning that pt is ordered for a stress echocardiogram although perDr. Barrientos's note it is written as echocardiogram not stress echo. Spoke with Dr. Barrientos who wishes to proceed with stress echo. ENT ACCOUNT LIAISON documented in this encounter Plan of Treatment Not on file documented as of this encounter Visit Diagnoses Not on filedocumented in this encounter Care Teams Drill Foreman Relationship Specialty Start Date End Date Javier Dalal MD PCP - General Internal Medicine 04/16/22 documented as of this encounter
--- OUTSIDE RECORDS SUMMARY | 2024-10-30 11:34 | XMS_ITS | Encounter Summary ---
Author Organization [facility] Address [facility] [place] [address] Care Team Providers Care Flight Control Manager Name Role Phone Sylvester Mcarthur MD Primary Care Provider [phone] Maria Elena Ortiz MD Unavailable Encounter Details Date Type Department Care Team (Late st Contact Info) Description 07/25/2018 Abstract [facility] AT [address] [address] Sylvester Mcarthur MD [address] [address] Social History Tobacco Use Types [...] on file Legal Sex Female 10:08 AM MANAGER APPLICATION DEVELOPMENT Gender Identity Not on file Sexual Orientation [...] on filedocumented in this encounter Care Teams Flight Control Manager Relationship Specialty Start Date End Date Sylvester Mcarthur MD PCP - General FAMILY PRACTICE 07/24/18 Maria Elena Ortiz MD CARDIOVASCULAR DISEASE 07/24/18 documented as of this encounter
--- OUTSIDE RECORDS SUMMARY | 2024-10-30 11:34 | XMS_ITS | Clinical Summary ---
Author Organization [address] Address [facility] [place] [address] Care Team Providers Care Solder Making Supervisor Name Role Phone Javier Dalal MD Primary Care Provider [phone] Allergies No known active allergies Medications ALPRAZolam [...] Deficiency Prevention Take 1 tablet by mouth director data analytics before breakfast Active ascorbic acid (vitamin C) 1,000 mg tablet Take 1 tablet (1,000 mg total) by mouth daily Active ergocalciferol, vitamin D2, (VITAMIN D2 ORAL) Take 5,000 Int'l Units/1.7m2 by mouth director data analytics before breakfast Active rizatriptan JEWEL BEARING GRINDER (MAXALT-JEWEL BEARING GRINDER) 10 mg disintegrating tabletIndications :Migraine Take 1 [...] Department Care Team Description 09/23/2024 Orders Only [facility] [address] [facility] Advanced Medicine 5th [place] [address] [place] [address] Felipa Khalil DNP Age-related osteoporosis [...] on file Legal Sex Female 10:43 AM ANIMAL IMPERSONATOR Gender Identity Female 11/22/2018 5:02 PM CDT [...] 36.4 C (97.6 F) 08/03/2019 12:48 PM ANIMAL IMPERSONATOR Respiratory Rate 9 04/29/2023 5:00 PM CDT [...] history exists Medical Devices Implanted Type Area Final Inspector Device Identifier Shelf Expiration Date Model / Serial / Lot Medtronic Inc Visi-Pro 8mm 37mm 135cm Radiopaque Balloon Expand Radial Strength - S0 - [id number] Implanted:Qty : 1 on 04/29/2023 by Flex Salazar MD at [facility] Stent Left: Subclavian Medtronic Inc 10/22/2025 [id number] / 0 / [id number] [employer] Chuck Angio-Seal Vip 6fr Closere Device [id number] - S0 - [id number] Implanted:Qty : 1 on 04/29/2023 by Flex Salazar MD at [facility] Vascular Closure Device Right: Femoral [employer]umo Authenticlick Chuck 10/20/2023 [id number] / [id number] / [id number] Procedures Procedure Name Priority Date/Time Associated [...] Bone mineral density was performed on a [employer] Discovery Densitometer. Based on machine cross-calibration and [...] by the International Society of Clinical Densitometry. [id number] Felipa Khalil [facility] DXA PROCEDURES Final Result from Last 3 Months or Most Recently Relevant to Health Maintenance Insurance MEDICARE [employer] MEDICARE MEDICARE BLUE CROSS MEDICARE SUPPLEMENT MEDICARE [employer] Advance Directives For more information, please contact: [phone] * Full Code (Latest Code Status on File) Date Activated Date Inactivated Comments 04/29/2023 3:07 PM 04/29/2023 9:54 PM Care Teams Solder Making Supervisor Relationship Specialty Start Date End Date Javier Dalal MD PCP - General Internal Medicine 04/16/22
--- OUTSIDE RECORDS SUMMARY | 2024-10-30 11:34 | XMS_ITS | Clinical Summary ---
Author Organization [facility] Address [address] [place] [address] Phone Care Team Providers Care Landfill Gas Collection Operator Name Role Phone Unavailable Primary Care Provider Unavailabl e Social History Tobacco Use Types Packs/Day Years Used Date Smoking Tobacco: Never Assessed Comments Unknown Sex and Gender Information Value Date Recorded Sex Assigned at Not on file Legal Sex Female 3:48 AM GLOBAL PRODUCT MANAGER Gender Identity Not on file Sexual Orientation [...]
--- OUTSIDE RECORDS SUMMARY | 2024-10-30 11:34 | XMS_ITS | Encounter Summary ---
Author Organization [facility] Address [address] [place] [address] Phone Care Team Providers Care Credit Reference Clerk Name Role Phone Sylvester Mcarthur MD Primary Care Provider [phone] Javier Dalal MD Primary Care Provider [phone] Encounter Details Date Type Department Care Team (Late st Contact Info) Description 08/27/2018 Orders Only [facility] Scanning, Provider Social History Tobacco Use Types Packs/Day Years Used Date Smoking Tobacco: Every Day Comments Unknown Sex and Gender Information Value Date Recorded Sex Assigned at Not on file Legal Sex Female 10:43 AM RN MOBILE Gender Identity Female 11/22/2018 5:02 PM CDT [...] on filedocumented in this encounter Care Teams Credit Reference Clerk Relationship Specialty [place] [address] [place] [address] PCP - General Emergency Medicine 07/24/18 04/15/22 [place] [address] [place] [address] PCP - General Internal Medicine 04/16/22 documented as of this encounter
== END 2024-10-30 11:03 | disposition home or self-care (01) ==
PROVIDERS: PCP Internal Medicine; Visit Provider Internal Medicine
DX: M81.0 Age-related osteoporosis without current pathological fracture (principal)
CPT/HCPCS: 96372; J0897

== ENCOUNTER 2025-05-18 13:10 | Outpatient (CLI) | payer MEDICARE, SELFPAY ==
[2025-05-18 13:57] VITALS: BP 102/60; PULSE 84; RESP 16; TEMP 36.6; O2SAT 97; BMI 22.8
[2025-05-18] MEDS: DENOSUMAB 60 MG/ML SYRINGE SUB-Q (14:02)
[2025-05-18 14:32] VITALS: BP 111/60; PULSE 78
--- OUTSIDE RECORDS SUMMARY | 2025-05-18 15:09 | XMS_ITS | Encounter Summary ---
Demographics Address [address] [place] [address] Work Phone Home Phone Mobile Phone Email Address [email or web address] Preferred Language Latvian Marital Status Druze Affiliation Unknown Race White Ethnic Group Not or Lati no Author Organization [facility] Address [address] [place] [address] Phone Care Team Providers Care Clinical Practice Consultant Name Role Phone Sylvester Mcarthur MD Primary Care Provider [phone] Javier Dalal MD Primary Care Provider [phone] Encounter Details Date Type Department Care Team (Late st Contact Info) Description 10/16/2018 Orders Only [facility] Scanning, Provider Social History Tobacco Use [...] on file Legal Sex Female 10:43 AM DIRECTOR OF ADULT EPILEPSY Gender Identity Female 11/22/2018 5:02 PM CDT [...] filedocumented in this encounter Care Teams Clinical Practice Consultant Relationship Specialty [place] [address] [place] [address] PCP - General Emergency Medicine 07/24/18 04/15/22 [place] [address] [place] [address] PCP - General Internal Medicine 04/16/22 documented as of this encounter
--- OUTSIDE RECORDS SUMMARY | 2025-05-18 15:09 | XMS_ITS | Clinical Summary ---
Author Organization [facility] Address [address] [place] [address] Care Team Providers Care Manager User Experience Name Role Phone Sylvester Mcarthur MD Primary Care Provider [phone] Allergies No known active allergies Medications ALPRAZolam [...] Take 1 tablet by mouth daily. Active Kasbeer-3 Fatty Acids (EPA) 1000 MG Cap Take [...] on file Legal Sex Female 10:08 AM CLINIC LICENSED PRACTICAL NURSE Gender Identity Not on file Sexual Orientation Not on file Occupation Industry Job Start Date Job End Date Not on file Not on file Not on file Not on file Last Filed Vital Signs Vital Sign Reading Time Taken Comments Blood Pressure 108/66 07/25/2018 1:20 PM CLINIC LICENSED PRACTICAL NURSE Pulse 88 07/25/2018 1:20 PM CLINIC LICENSED PRACTICAL NURSE Temperature - - Respiratory Rate 16 07/25/2018 1:20 PM CLINIC LICENSED PRACTICAL NURSE Oxygen Saturation - - Inhaled Oxygen Concentration - - Weight 63 kg (139 lb) 07/31/2018 10:00 AM CLINIC LICENSED PRACTICAL NURSE Height 157.5 cm (5' 2) 07/31/2018 10:00 AM CLINIC LICENSED PRACTICAL NURSE Body Mass Index 25.42 07/31/2018 10:00 AM CLINIC LICENSED PRACTICAL NURSE Plan of Treatment Health Maintenance Due Date Last Done Comments DTaP, Tdap and Td Vaccines ( 1 - Tdap) 1961 Zoster Vaccines (1 of 2) 1992 Annual Medicare Wellness Visit 2007 Pneumococcal Vaccine: 50+ Ye ars (2 of 2 - PPSV23, PCV20, or PCV21) 08/26/2017 07/01/2017 RSV Immunization or 60+ Years (1 - 1-dose 75+ series) 2017 COVID-19 Vaccine (1 - 2024-2 6 season) 2025 Influenza Adult (#1) 2025 05/28/2017 Dexa Scan (General) Completed 05/28/2019 Hepatitis A Vaccines Aged Out No long er eligible based on patient's age to complete this topic Meningococcal B Vaccine Aged Out No l onger eligible based on patient's age to complete this topic Meningococcal Vaccine Aged Out No manuel praful eligible based on patient's age to complete this topic RSV Immunizations Under 20 Months Aged Out No longer eligible based on patient's age to complete this topic Insurance MEDICARE [employer] [place] [id number] MEDICARE [employer] Care Teams Manager User Experience Relationship Specialty Start Date End Date Sylvester Mcarthur MD PCP - General FAMILY PRACTICE 07/24/18
--- OUTSIDE RECORDS SUMMARY | 2025-05-18 15:09 | XMS_ITS | Clinical Summary ---
Author Organization [facility] Address [address] [place] [address] Phone Care Team Providers Care Dehydrator Name Role Phone Unavailable Primary Care Provider Unavailabl e Social History Tobacco Use Types Packs/Day Years Used Date Smoking Tobacco: Never Assessed Comments Unknown Sex and Gender Information Value Date Recorded Sex Assigned at Not on file Legal Sex Female 3:48 AM EMS EDUCATOR Gender Identity Not on file Sexual Orientation Not on file Plan of Treatment Health Maintenance Due Date Last Done Comments DTAP/TDAP/TD VACCINES (1 - Tdap) 1961 PNEUMOCOCCAL VACCINE 50+ YEARS (1 of 1 - PCV) 08/28/18 93 ZOSTER VACCINE (1 of 2) 1992 OSTEOPOROSIS SCREENING 2007 RSV VACCINE (60+ or ) (1 - 1-dose 75+ series) 2017 INFLUENZA VACCINE (#1) 2025
--- OUTSIDE RECORDS SUMMARY | 2025-05-18 15:09 | XMS_ITS | Encounter Summary ---
Author Organization [facility] Address [address] [place] [address] Phone Care Team Providers Care Tax Manager Name Role Phone Sylvester Mcarthur MD Primary Care Provider [phone] Javier Dalal MD Primary Care Provider Encounter Details Date Type Department Care Team (Late st Contact Info) Description 07/29/2018 Telephone [facility] Cardiology [address] [facility] 8th [place] [address] [place] [address] Hussein Pantoja Social History Tobacco Use Types Packs/Day Years Used Date Smoking Tobacco: Every Day Comments Unknown Sex and Gender Information Value Date Recorded Sex Assigned at Not on file Legal Sex Female 10:43 AM EDGE GRINDER Gender Identity Female 11/22/2018 5:02 PM CDT Sexual Orientation Straight 11/22/2018 5: 02 PM CDT documented as of this encounter Plan of Treatment Not on file documented as of this encounter Visit Diagnoses Not on filedocumented in this encounter Care Teams Tax Manager Relationship Specialty Start [place] [address] [place] [address] PCP - General Emergency Medicine 07/24/18 04/15/22 [place] [address] [place] [address] PCP - General Internal Medicine 04/16/22 documented as of this encounter
--- OUTSIDE RECORDS SUMMARY | 2025-05-18 15:09 | XMS_ITS | Patient Health Record ---
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
--- OUTSIDE RECORDS SUMMARY | 2025-05-18 15:09 | XMS_ITS | Encounter Summary ---
Author Organization [facility] Address [address] [place] [address] Phone Care Team Providers Care Otr Company Driver Name Role Phone Sylvester Mcarthur MD Primary Care Provider [phone] Javier Dalal MD Primary Care Provider [phone] Encounter Details Date Type Department Care Team (Late st Contact Info) Description 08/27/2018 Orders Only [facility] Scanning, Provider Social History Tobacco Use Types Packs/Day Years Used Date Smoking Tobacco: Every Day Comments Unknown Sex and Gender Information Value Date Recorded Sex Assigned at Not on file Legal Sex Female 10:43 AM DEPUTY BRAND INSPECTOR Gender Identity Female 11/22/2018 5:02 PM CDT [...] on filedocumented in this encounter Care Teams Otr Company Driver Relationship Specialty [place] [address] [place] [address] PCP - General Emergency Medicine 07/24/18 04/15/22 [place] [address] [facility] [place] [address] PCP - General Internal Medicine 04/16/22 documented as of this encounter
--- OUTSIDE RECORDS SUMMARY | 2025-05-18 15:09 | XMS_ITS | Patient Health Record ---
Author Organization [facility] Address [address] [place] [address] Care Team Providers Care Efficiency Analyst Name Role Phone MARYANA GUZMAN Primary Care Provider Reason For Referral No Information Plan Of Treatment No Information Insurance Providers Payer Name Payer Address Payer Phone Subscriber Number Group Number Insured Name Patient Relationship to Insured Coverage Start Date Coverage End Date MEDICARE [address] [place] [address] [phone] [id number] Brittnee Guerrero Self - patient is the insured [place]/PPC/FE P [address] [place] [address] [id number] Brittnee Guerrero Self - patient is the insured
--- OUTSIDE RECORDS SUMMARY | 2025-05-18 15:10 | XMS_ITS | Encounter Summary ---
Author Organization [facility] Address [address] [place] [address] Care Team Providers Care Ironing Worker Name Role Phone Unavailable Primary Care Provider Unavailabl e Encounter Details Date Type Department Care Team (Late st Contact Info) Description 02/12/2007 Outpatient Historical [facility] Support [facility]. (Adt Cardiology[facility]) [address] [place] [address] Roldan Ramirez MD NO ADDRESS ON FILE Social History Tobacco Use Types Packs/Day Years Used Date Smoking Tobacco: Never Assessed Comments Unknown Sex and Gender Information Value Date Recorded Sex Assigned at Not on file Legal Sex Female 3:48 AM AIR PLANT ENGINEER Gender Identity Not on file Sexual Orientation Not on file documented as of this encounter Plan of Treatment Not on file documented as of this encounter Visit Diagnoses Not on filedocumented in this encounter
--- OUTSIDE RECORDS SUMMARY | 2025-05-18 15:10 | XMS_ITS | Clinical Summary ---
Author Organization [place] [id number] Address [address] [place] [address] Care Team Providers Care Manager Inpatient Name Role Phone Javier Dalal MD Primary Care Provider [phone] Allergies No known active allergies Medications ALPRAZolam (XANAX) 0.25 mg tablet Take 1 tablet (0.25 mg total) by mouth daily as needed 09/10/19 18 Active FLUoxetine (PROzac) 20 mg capsule Take 1 capsule (20 mg total) by mouth daily Active coenzyme Q10 200 mg capsule Take 1 capsule (200 mg total) by mouth daily Active multivitamin tabletIndications: Vitamin Deficiency Prevention Take 1 tablet by mouth senior product designer before breakfast Active ascorbic acid (vitamin C) 1,000 mg tablet Take 1 tablet (1,000 mg total) by mouth daily Active ergocalciferol, vitamin D2, (VITAMIN D2 ORAL) Take 5,000 Int'l Units/1.7m2 by mouth senior product designer before breakfast Active aspirin 81 mg enteric coated tablet Take 1 tablet (81 mg total) by mouth daily 30 tablet 11 04/04/20 23 Active denosumab (PROLIA) 60 mg/mL syringeIndications :postmenopausal osteoporosis and high fracture risk Inject 1 mL (60 mg total) under the skin once for 1 dose 1 mL 02/28/20 24 Active albuterol HFA (PROVENTIL HFA,VENTOLIN HFA,PROAIR HFA) 90 mcg/actuation inhaler 12/11/19 25 Active cholecalciferol 25 mcg (1,000 unit) tablet Take 1 tablet (1,000 Units total) by mouth daily 04/18/20 21 Active rosuvastatin (CRESTOR) 40 mg tabletIndications: Hyperlipidemia LDL goal <70,Hyperlipidemia , unspecified hyperlipidemia type,On statin therapy,Medication dose increased Take 1 tablet (40 mg total) by mouth daily 90 tablet 3 04/30/20 25 026 Active rosuvastatin (CRESTOR) 20 mg tablet TAKE 1 TABLET (20 MG TOTAL) BY MOUTH DAILY 90 tablet 1 10/17/19 25 025 Discontin ued(Alter lonnie therapy) nicotine (NICODERM CQ) 7 mgIndications:Enco unter for smoking cessation counseling,Tobacco use disorder Place 1 patch on the skin daily for 24 hours 14 patch 2 01/28/20 25 025 Discontin ued(Thera py completed ) Active Problems Problem Noted Date Diagnosed Date [...] Encounters Date Type Department Care Team Description 04/30/2025 3:10 PM CDT Lab [facility] [address] [place] [phone] Diabetes mellitus screening; Hyperlipidemia LDL goal <70; On statin therapy 04/30/2025 11:30 AM CDT Office Visit [facility] [address] [facility] [address] [place] [address] Hussein Mcguire NP Cerebral infarction, unspecified mechanism (HCC) (Primary Dx); Hyperlipidemia LDL goal <70; Hyperlipidemia, unspecified hyperlipidemia type; On statin therapy; Medication dose increased; Encounter for smoking cessation counseling; Tobacco use disorder 04/07/2025 1:00 PM CDT Office Visit [facility] [address] [place] [address] [place] [phone] Jesse Barrientos MD Anticoagulation management encounter (Primary Dx); Hyperlipidemia, unspecified hyperlipidemia type 03/18/2025 Results Follow-Up [facility] [address] [facility] [address] [place] [phone] Hussein Mcguire NP CTA Head Neck W WO Contrast 03/12/2025 1:17 PM CDT - 03/12/2025 11:59 PM CDT Hospital Encounter [facility] ([facility]) [address] [place] [phone] Cerebral infarction, unspecified mechanism (HCC) Discharge Disposition: Discharge to home or self care 03/08/2025 Orders Only [facility] Stroke [address] [place] [address] Advanced Medicine [address] [place] [phone] Hussein Mcguire NP Cerebral infarction, unspecified mechanism (HCC) (Primary Dx) 03/04/2025 3:19 PM CDT - 03/04/2025 11:59 PM CDT Hospital Encounter [facility] ([facility]) [address] [place] [phone] Cerebral infarction, unspecified mechanism (HCC) Discharge Disposition: Discharge to home or self care 03/02/2025 Results Follow-Up [facility] Stroke [address] [place] [address] Advanced [facility] [address] [place] [phone] Hussein Mcguire NP Transthoracic Echo (TTE) Complete W Doppler/CF, MRA Head and Carotids W WO Contrast, MCT Mobile Cardiac Telemetry Event Monitor, Additional followed-up results: 2 03/01/2025 8:20 AM CDT - 03/01/2025 11:59 PM CDT Hospital Encounter [facility] [address] [facility] [address] [place] [address] Cerebral infarction, unspecified mechanism (HCC); Heart palpitations Discharge Disposition: Discharge to home or self care 03/01/2025 8:07 AM CDT - 03/01/2025 11:59 PM CDT Hospital Encounter [facility] [address] [facility] [address] [place] [address] Cerebral infarction, unspecified mechanism (HCC) Discharge Disposition: Discharge to home or self care from Last 3 Months Immunizations Immunization Administration [...] on file 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 Identity Female 11/22/2018 5:02 PM CDT [...] Sign Reading Time Taken Comments Blood Pressure 158/80 04/30/2025 11:13 AM CDT Pulse 62 04/30/2025 11:13 AM CDT Temperature 36.8 C (98.2 F) 12/16/2024 3:02 PM CDT Respiratory Rate 9 04/29/2023 5:00 PM CDT Oxygen Saturation 97% 04/07/2025 1:05 PM CDT Inhaled Oxygen Concentration - - Weight 57 kg (125 lb 9.6 oz) 04/30/2025 11:13 AM CDT Height 154.9 cm (5' 0.98) 04/30/2025 11:13 AM C DT Body Mass Index 23.75 04/30/2025 11:13 AM CDT Plan of Treatment Health Maintenance Due Date Last Done Comments Depression Screening 1942 Fall Risk Assessment 1942 DTaP/Tdap/Td Vaccine (1 - Tdap) 1953 Hepatitis B Screening 1960 Zoster Vaccine (1 of 2) 1992 Pneumococcal vaccine 65+ (2 of 2 - PCV20 or PCV21) 07/01/2018 07/01/2017 Well Visit 65+ 03/15/2024 03/15/2023 Covid-19 Vaccine (3 - 2024-2 6 season) 2025 08/13/2020, 07/16/2020 Influenza Vaccine (#1) 2025 05/28/2017 Osteoporosis Screening-Bone Density Scan 10/03/2025 10/04/2023, 08/30/2022, 02/03/2021, Additional history exists Medical Devices Implanted Type Area Clinical Education Manager Device Identifier Shelf Expiration Date Model / Serial / Lot MatchMate.[employer] Visi-Pro 8mm 37mm 135cm Radiopaque Balloon Expand Radial Strength - S0 - [id number] Implanted:Qty : 1 on 04/29/2023 by Flex Salazar MD at [facility] Stent Left: Subclavian [employer] 10/22/2025 [id number] / 0 / [id number] [employer] Chuck Angio-Seal Vip 6fr Closere Device [id number] - S0 - [id number] Implanted:Qty : 1 on 04/29/2023 by Flex Salazar MD at [facility] Vascular Closure Device Right: Femoral Onstream [id number] [place] 10/20/2023 [id number] / [id number] / [id number] Procedures Procedure Name Priority Date/Time Associated Diagnosis Comments LIPID PANEL Routine 04/30/2025 1:14 PM CDT Hyperlipidemia LDL goal <70 On statin therapy HEMOGLOBIN A1C Routine 04/30/2025 1:14 PM CDT Diabetes mellitus screening POCT LIPID PANEL Routine 04/07/2025 1:38 PM CDT Hyperlipidemia, unspecified hyperlipidemia type CTA HEAD NECK W WO CONTRAST Schedule Routine, Read Routine (OP Routine) 03/12/2025 1:46 PM CDT Cerebral infarction, unspecified mechanism (HCC) MRA BRAIN CAROTIDS W WO CONTRAST Schedule Routine, Read Routine (OP Routine) 03/04/2025 4:51 PM CDT Cerebral infarction, unspecified mechanism (HCC) MCT - MOBILE CARDIAC TELEMETRY EVENT MONITOR Routine 03/01/2025 9:23 AM CDT Cerebral infarction, unspecified mechanism (HCC) Heart palpitations TRANSTHORACIC ECHO (TTE) COMPLETE W DOPPLER/CF WO CONTRAST Routine 03/01/2025 9:07 AM CDT Cerebral infarction, unspecified mechanism (HCC) DEXA TBS AXIAL SKELETON BONE DENSITY 1 OR MORE SITES Schedule Routine, Read Routine (OP Routine) 10/04/2023 10:29 AM CDT Age-related osteoporosis without current pathological fracture from Last 3 Months or Most Recently Relevant to Health Maintenance Results * Hemoglobin A1c (04/30/2025 1:14 PM CDT) Hgb A1C 5.1 4.0 - 5.6 % Estimated Average Glucose 100 mg/dL [facility] Comment: The ADA recommends reporting an estimated Average Glucose (eAG) with all Hemoglobin A1c results using the equation derived from a study of 507 normal and diabetic adults. Minority populations were underrepresented and children were not included. (Diabetes Care 2020; 43(S1): S66-S76). The eAG is not equivalent to a fasting glucose. Blood 04/30/2025 1:14 PM CDT 04/30/2025 1:36 PM CDT us Hussein Mcguire NP LAB BLOOD ORDERABLES F inal Result [facility] Department [place] [address] * Lipid panel (04/30/2025 1:14 PM CDT) Cholesterol 166 30 - 199 mg/dL Comment: Interpretive Data Ages < or = 19 years Acceptable: <170 mg/dL Borderline high: 170-199 mg/dL High: >or= 200 mg/dL Ages > or = 20 years Desirable: <200 mg/dL Borderline high: 200-239 mg/dL High: >or= 240 mg/dL Literature References: 1. Expert Panel on Integrated Guidelines for Cardiovascular Health and Risk Reduction in Children and Adolescents. Pediatrics 2011;128:S213 2. NCEP Expert Panel. Circulation 2004;110:227 Current Interpretive Data was last revised on 2018. Triglycerides 96 <=149 mg/dL [facility] Comment: Interpretive Data Ages < or = 9 years Acceptable: <75 mg/dL Borderline high: 75-99 mg/dL High: >or= 100 mg/dL Ages 10 to 20 years Acceptable: <90 mg/dL Borderline high: 90-129 mg/dL High: >or= 130 mg/dL Ages > or = 20 years Desirable: <150 mg/dL Borderline high: 150-199 mg/dL High: 200-499 mg/dL Very high: >or= 499 mg/dL Literature References: 1. Expert Panel on Integrated Guidelines for Cardiovascular Health and Risk Reduction in Children and Adolescents. Pediatrics 2011;128:S213 2. NCEP Expert Panel. Circulation 2004;110:227 Current Interpretive Data was last revised on 2018. HDL 55 >=40 mg/dL [facility] Comment: Interpretive Data Ages < or = 19 years Acceptable: >45 mg/dL Borderline low: 40-45 mg/dL Low: <40 mg/dL Ages > or = 20 years Desirable: >or= 60 mg/dL Low: <40 mg/dL Literature References: 1. Expert Panel on Integrated Guidelines for Cardiovascular Health and Risk Reduction in Children and Adolescents. Pediatrics 2011;128:S213 2. NCEP Expert Panel. Circulation 2004;110:227 Current Interpretive Data was last revised on 2018. LDL, calculated 93 <=129 mg/dL [facility] Comment: Interpretive Data Ages < or = 19 years Acceptable: <110 mg/dL Borderline high: 110-129 mg/dL High: >or= 130 mg/dL Ages > or = 20 years Optimal: <100 mg/dL Near optimal: 100-129 mg/dL Borderline high: 130-159 mg/dL High: >160 mg/dL Calculated using the Sukumar LDL-C estimating equation. This equation was implemented on 2024. Prior to this date LDL-C was estimated using the Friedewald equation. Literature References: 1. Expert Panel on Integrated Guidelines for Cardiovascular Health and Risk Reduction in Children and Adolescents. Pediatrics 2011;128:S213 2. NCEP Expert Panel. Circulation 2004;110:227 3. Sukumar Hale et al. SUSANA Cardiol. 2020 November 19;5(5):540-548. doi: 10.1001/jamacardio.2020.0013 Current Interpretive Data was last revised on 2024. Non-HDL Cholesterol 111 mg/dL [facility] Comment: Interpretive Data Ages < or = 19 years Acceptable: <120 mg/dL Borderline high: 120-144 mg/dL High: >145 mg/dL Ages > or = 20 years When triglycerides are >200 mg/dL, Non-HDL cholesterol is a secondary target of therapy with treatment goals that are 30 mg/dL greater than the LDL cholesterol target. Literature References: 1. Expert Panel on Integrated Guidelines for Cardiovascular Health and Risk Reduction in Children and Adolescents. Pediatrics 2011;128:S213 2. NCEP Expert Panel. Circulation 2004;110:227 Current Interpretive Data was last revised on 2018. Chol[facility]HDL ratio 3 [facility] Blood 04/30/2025 1:14 PM CDT 04/30/2025 1:36 PM CDT us Hussein Mcguire NP LAB BLOOD ORDERABLES F inal Result [facility] Department [place] [address] * POCT lipid panel (04/07/2025 1:38 PM CDT) HDL, POC 56 >=40 mg/dL Triglycerides, POC 91 <=149 mg/dL LDL Cholesterol POC 90 <=129 mg/dL Chol/HDL Ratio, POC 2.9 NONE Non-HDL Cholesterol, POC 108 NONE mg/dL Cholesterol Total, POC 164 30 - 199 mg/dL Capillary blood 04/07/2025 1 :38 PM CDT us Jesse Barrientos MD POINT OF CARE TEST ORDERA BLES Final Result * CTA Head Neck W WO Contrast (03/12/2025 1:46 PM CDT) Anatomical Region Laterality Modality Head and Neck N/A Computed Tomogra phy 03/12/2025 3:49 PM CDT Impressions 03/12/2025 4:00 PM CDT 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 Otherwise scattered intracranial atherosclerotic disease and atherosclerosis of the carotid bulbs without hemodynamically significant stenosis or large vessel occlusion. Dictated by: Mildred Johnson MD The radiology attending physician has personally reviewed this study, and had reviewed and/or edited this written report and agrees with it. Electronically signed by: Vianney Goss M.D. Narrative 03/12/2025 4:00 PM CDT EXAMINATION: 1. Computed tomography angiography (CTA) of the head without and with contrast 2. Computed tomography angiography (CTA) of the neck with contrast HISTORY: Possible subacute infarcts. Stroke workup. 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 TECHNIQUE: CT of the head was performed with images acquired from skull base to vertex without intravenous contrast. Computed tomographic angiography was obtained from the aortic arch to the vertex following the uneventful administration of intravenous contrast. 3D images of the CTA were generated on a dedicated workstation/client server developer. Contrast information: 90 mL Optiray-350 IV COMPARISON: Brain MRI and MRA dated 03/04/2025 and brain MRI dated 01/07/2025 FINDINGS: HEAD: There is global parenchymal volume loss with mild ex-vacuo dilation of the ventricles. There are severe chronic white matter changes, better appreciated on prior MR brain. There is no acute intracranial hemorrhage. No mass effect or midline shift is present. There are bilateral lens replacements. The visualized portions of the mastoids are normal. The visualized portions of the paranasal sinuses are normal. No fractures are identified. NECK: Scattered subcentimeter lymph nodes are seen in the neck. None are pathologically enlarged. The muscles of the neck are normal. Fascial planes are preserved and the deep spaces of the neck are normal. The visualized airway is widely patent. There are thyroid nodules. The base of the skull and the temporal bones are normal. Limited views of the brain including the cerebellum and brainstem are normal. The spinal canal is normal in caliber. There is multilevel cervical degenerative disc disease. Limited examination of the superior thorax shows no pulmonary infiltrate, suspicious nodules, or pleural effusions. CTA: The visualized aortic arch appears normal with normal configuration of the great vessels. There is atherosclerosis of the innominate artery with severe stenosis at the origin. There is a left subclavian artery stent. The right subclavian artery is normal in course and caliber. The common carotid arteries are normal in course and caliber with normal carotid bifurcations bilaterally. The course and caliber of the internal carotid arteries in the neck are normal. There is mild atherosclerosis at the bilateral carotid bifurcations without significant stenosis. The visualized course of the internal carotid arteries in the head are normal. There is atherosclerosis of the bilateral distal internal carotid arteries without significant stenosis. There is intracranial atherosclerotic disease without significant stenosis. The haixqs-yz-Sganff is complete. The anterior and middle cerebral arteries are normal. The vertebral arteries are codominant. The basilar artery is normal. The posterior cerebral arteries are normal. There is no aneurysm or vascular malformation identified. Procedure Note Vianney Toledo MD - 03/12/2025 EXAMINATION: 1. Computed tomography angiography (CTA) of the head without and with contrast 2. Computed tomography angiography (CTA) of the neck with contrast HISTORY: Possible subacute infarcts. Stroke workup. 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 TECHNIQUE: CT of the head was performed with images acquired from skull base to vertex without intravenous contrast. Computed tomographic angiography was obtained from the aortic arch to the vertex following the uneventful administration of intravenous contrast. 3D images of the CTA were generated on a dedicated workstation/client server developer. Contrast information: 90 mL Optiray-350 IV COMPARISON: Brain MRI and MRA dated 03/04/2025 and brain MRI dated 01/07/2025 FINDINGS: HEAD: There is global parenchymal volume loss with mild ex-vacuo dilation of the ventricles. There are severe chronic white matter changes, better appreciated on prior MR brain. There is no acute intracranial hemorrhage. No mass effect or midline shift is present. There are bilateral lens replacements. The visualized portions of the mastoids are normal. The visualized portions of the paranasal sinuses are normal. No fractures are identified. NECK: Scattered subcentimeter lymph nodes are seen in the neck. None are pathologically enlarged. The muscles of the neck are normal. Fascial planes are preserved and the deep spaces of the neck are normal. The visualized airway is widely patent. There are thyroid nodules. The base of the skull and the temporal bones are normal. Limited views of the brain including the cerebellum and brainstem are normal. The spinal canal is normal in caliber. There is multilevel cervical degenerative disc disease. Limited examination of the superior thorax shows no pulmonary infiltrate, suspicious nodules, or pleural effusions. CTA: The visualized aortic arch appears normal with normal configuration of the great vessels. There is atherosclerosis of the innominate artery with severe stenosis at the origin. There is a left subclavian artery stent. The right subclavian artery is normal in course and caliber. The common carotid arteries are normal in course and caliber with normal carotid bifurcations bilaterally. The course and caliber of the internal carotid arteries in the neck are normal. There is mild atherosclerosis at the bilateral carotid bifurcations without significant stenosis. The visualized course of the internal carotid arteries in the head are normal. There is atherosclerosis of the bilateral distal internal carotid arteries without significant stenosis. There is intracranial atherosclerotic disease without significant stenosis. The dtmffe-dk-Zplide is complete. The anterior and middle cerebral arteries are normal. The vertebral arteries are codominant. The basilar artery is normal. The posterior cerebral arteries are normal. There is no aneurysm or vascular malformation identified. 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 Otherwise scattered intracranial atherosclerotic disease and atherosclerosis of the carotid bulbs without hemodynamically significant stenosis or large vessel occlusion. Dictated by: Mildred Johnson MD The radiology attending physician has personally reviewed this study, and had reviewed and/or edited this written report and agrees with it. Electronically signed by: Vianney Goss M.D. Hussein Mcguire NP IMG CT PROCEDURES Kellie l Result * MRA Head and Carotids W WO Contrast (03/04/2025 4:51 PM CDT) Anatomical Region Laterality Modality Head and Neck N/A Magnetic Resonan ce 03/05/2025 11:4 8 AM CDT Impressions 03/05/2025 2:00 PM CDT Patient motion degrades image quality and decreases sensitivity of exam. Within this context: 1. Nonvisualization of the right vertebral artery using the ikcm-zi-enzldx technique and diminished right vertebral artery in postcontrast imaging with poor visualization of the right V1 segment, overall possibly reflecting proximal right vertebral artery occlusion and retrograde flow, new from prior MRA in 2022. Recommend CTA head and neck for further evaluation. 2. The origin of the innominate artery is also not well visualized which may be artifactual. This can be assessed at the time of CTA. 3. Evaluation of the proximal left subclavian artery is difficult due to artifact from the stent. 4. Normal MRA of the head. Dictated by: David Andersen M.D. The radiology attending physician has personally reviewed this study, and had reviewed and/or edited this written report and agrees with it. Electronically signed by: Kevin Purdy M.D. Narrative 03/05/2025 2:00 PM CDT EXAMINATION: 1. Magnetic resonance angiography (MRA) of the ytyrke-gg-Fwsjgm without and with contrast 2. Magnetic resonance angiography (MRA) of the neck without and with contrast HISTORY: 84 y.o. right handed female with a past medical history of HLD, anxiety, migraine, and chronic dizziness, history of left subclavian stent 04/2023, who presents to vascular neurology clinic for stroke evaluation after recent MRI brain scan revealed to punctate and subtle foci of diffusion restriction within the right shirley radiata and right postcentral gyrus which could represent punctate late subacute infarcts. TECHNIQUE: Magnetic resonance angiography of the eiipqs-px-Egragw was performed using a separate data acquisition with a non-contrast lypi-ul-vpwuht technique and a post-contrast technique to produce axial thin-slice source images. These images were then used to generate maximum intensity projection (MIP) images. Magnetic resonance angiography of the neck was performed using a separate data acquisition with a non-contrast odcz-ht-jpvvtk technique and a post-contrast technique to produce thin-slice source images. These images were then used to generate maximum intensity projection (MIP) images. Contrast information: 11 mL Gadoterate Meglumine IV COMPARISON: MR head 03/12/23 FINDINGS: NECK: The origin of the innominate is not well visualized. The aortic arch and origins of the great vessels are otherwise normal. A typical three-vessel arch is present. The common carotid and cervical internal carotid arteries of the neck are of normal caliber. The carotid bifurcations are of normal caliber without vascular narrowing. The right V1 segment is not well visualized. Diminutive right vertebral artery throughout its course. The left vertebral artery is dominant. 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 Although MRA is a screening examination, catheter angiography remains the definitive study for small aneurysms, vasculitis, and other vascular abnormalities. There is no soft tissue abnormality in the neck on limited imaging of the neck included in this MR angiogram. HEAD: The internal carotid arteries in the head are of normal caliber. There are no areas of vascular narrowing. The szzgym-kw-Xqjoga is complete. The anterior and middle cerebral arteries are normal. The vertebral arteries are codominant. The basilar artery is normal. The posterior cerebral arteries are normal. There is no aneurysm or vascular malformation identified. Although MRA is a screening examination, catheter angiography remains the definitive study for small aneurysms, vasculitis, and other vascular abnormalities. Procedure Note Kevin Purdy MD PhD - 03/05/2025 EXAMINATION: 1. Magnetic resonance angiography (MRA) of the aelbza-vg-Nxuqhd without and with contrast 2. Magnetic resonance angiography (MRA) of the neck without and with contrast HISTORY: 84 y.o. right handed female with a past medical history of HLD, anxiety, migraine, and chronic dizziness, history of left subclavian stent 04/2023, who presents to vascular neurology clinic for stroke evaluation after recent MRI brain scan revealed to punctate and subtle foci of diffusion restriction within the right shirley radiata and right postcentral gyrus which could represent punctate late subacute infarcts. TECHNIQUE: Magnetic resonance angiography of the hysmuv-hs-Qvdlxx was performed using a separate data acquisition with a non-contrast drek-oi-ufwfxh technique and a post-contrast technique to produce axial thin-slice source images. These images were then used to generate maximum intensity projection (MIP) images. Magnetic resonance angiography of the neck was performed using a separate data acquisition with a non-contrast dbvr-vg-vceoiy technique and a post-contrast technique to produce thin-slice source images. These images were then used to generate maximum intensity projection (MIP) images. Contrast information: 11 mL Gadoterate Meglumine IV COMPARISON: MR head 03/12/23 FINDINGS: NECK: The origin of the innominate is not well visualized. The aortic arch and origins of the great vessels are otherwise normal. A typical three-vessel arch is present. The common carotid and cervical internal carotid arteries of the neck are of normal caliber. The carotid bifurcations are of normal caliber without vascular narrowing. The right V1 segment is not well visualized. Diminutive right vertebral artery throughout its course. The left vertebral artery is dominant. 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 Although MRA is a screening examination, catheter angiography remains the definitive study for small aneurysms, vasculitis, and other vascular abnormalities. There is no soft tissue abnormality in the neck on limited imaging of the neck included in this MR angiogram. HEAD: The internal carotid arteries in the head are of normal caliber. There are no areas of vascular narrowing. The phtflo-yo-Ofxgko is complete. The anterior and middle cerebral arteries are normal. The vertebral arteries are codominant. The basilar artery is normal. The posterior cerebral arteries are normal. There is no aneurysm or vascular malformation identified. Although MRA is a screening examination, catheter angiography remains the definitive study for small aneurysms, vasculitis, and other vascular abnormalities. IMPRESSION: Patient motion degrades image quality and decreases sensitivity of exam. Within this context: 1. 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 Recommend CTA head and neck for further evaluation. 2. The origin of the innominate artery is also not well visualized which may be artifactual. This can be assessed at the time of CTA. 3. Evaluation of the proximal left subclavian artery is difficult due to artifact from the stent. 4. Normal MRA of the head. Dictated by: David Andersen M.D. The radiology attending physician has personally reviewed this study, and had reviewed and/or edited this written report and agrees with it. Electronically signed by: Kevin Purdy M.D. Hussein Mcguire NP IMG MRI PROCEDURES Fin al Result * MCT Mobile Cardiac Telemetry Event Monitor (03/01/2025 9:23 AM CDT) Anatomical Region Laterality Modality Electrocardiogra phy 03/01/2025 9:25 AM CDT Narrative 04/14/2025 2:59 PM CDT [facility] Cardiac [place] [address] CARDIAC EVENT MONITOR REPORT Patient Name: BRITTNEE GUERRERO L : 1940 (84y 6m) Gender: F Study Date: 03/01/2025 09:25:23 AM Ht(Inch): Wt(Lb): BSA: Tech: Location: [facility] BMI: Ref Provider: PROCEDURES: Event Report: [facility] MOBILE CARDIAC TELEMETRY EVENT MONITOR [[id number]]. Enrollment Period: 2025-03-01 00:00:00 through 2025-03-30 00:00:00. Hookup: Hookup Tech: Love Gonzalez. Patient Instructions: Patient understood directions and use of equipment (Patient Hookup at Home), tech educated patient and applied the monitor, patient picked up device from office and understand directions and use of the equipment and patient given monitor in office during appointment, patient understands directions and use of equipment. Location: [facility]. INDICATIONS: I63.9 Cerebral infarction, unspecified and R00.2 Palpitations. FINDINGS: Event Data: Min Rate: 53 BPM Min Rate Timestamp: 2025-03-12 13:41:00 Max Rate: 137 BPM Max Rate Timestamp: 2025-03-08 12:20:00 Mean Rate: 79 BPM SIGNIFICANT PAUSES: 0 >3 sec SUMMARY: The patient's monitoring period was 03/01/2025 - 03/30/2025. Baseline sample showed Sinus Rhythm with a heart rate of 85.9 bpm. There were 0 critical, 0 serious, and 9 stable events that occurred. All detected events were in NSR. CONCLUSIONS: 1. The patient's monitoring period was 03/01/2025 - 03/30/2025. Baseline sample showed Sinus Rhythm with a heart rate of 85.9 bpm. There were 0 critical, 0 serious, and 9 stable events that occurred. All detected events were in NSR. 2. I have reviewed the PDF and all the ECG strips. I agree with the interpretations as detailed in the report. 3. The PDF can be found in the Epic Patient chart. Please go to the Cardiology tab, click on the holter or event exam. Scroll to bottom where the ORDER-LEVEL Documents reside and click the blue link to the pdf. Electronically Signed By: Jairo Lance Jr., M.D. 04/14/2025 2:16:42 PM CDT Procedure Note Jairo Lance MD PhD - 04/14/2025 [facility] Cardiac [place] [address] CARDIAC EVENT MONITOR REPORT Patient Name: BRITTNEE GUERRERO L : 1940 (84y 6m) Gender: F Study Date: 03/01/2025 09:25:23 AM Ht(Inch): Wt(Lb): BSA: Tech: Location: [facility] BMI: Ref Provider: PROCEDURES: Event Report: [facility] MOBILE CARDIAC TELEMETRY EVENT MONITOR [[id number]]. Enrollment Period: 2025-03-01 00:00:00 through 2025-03-30 00:00:00. Hookup: Hookup Tech: Love Gonzalez. Patient Instructions: Patient understood directions and use of equipment(Patient Hookup at Home), tech educated patient and applied the monitor, patient picked updevice from office and understand directions and use of the equipment and patientgiven monitor in office during appointment, patient understands directions and use ofequipment. Location: [facility]. INDICATIONS: I63.9 Cerebral infarction, unspecified and R00.2 Palpitations. FINDINGS: Event Data: Min Rate: 53 BPM Min Rate Timestamp: 2025-03-12 13:41:00 Max Rate: 137 BPM Max Rate Timestamp: 2025-03-08 12:20:00 Mean Rate: 79 BPM SIGNIFICANT PAUSES: 0 >3 sec SUMMARY: The patient's monitoring period was 03/01/2025 - 03/30/2025.Baseline sample showed Sinus Rhythm with a heart rate of 85.9 bpm. There were 0 critical,0 serious, and 9 stable events that occurred. All detected events were in NSR. CONCLUSIONS: 1. The patient's monitoring period was 03/01/2025 - 03/30/2025. Baselinesample showed Sinus Rhythm with a heart rate of 85.9 bpm. There were 0 critical, 0serious, and 9 stable events that occurred. All detected events were in NSR. 2. I have reviewed the PDF and all the ECG strips. I agree with theinterpretations as detailed in the report. 3. The PDF can be found in the [facility] Patient chart. Please go to theCardiology tab, click on the holter or event exam. Scroll to bottom where the ORDER-LEVELDocuments reside and click the blue link to the pdf. Electronically Signed By: Jairo Lance Jr., M.D. 04/14/2025 2:16:42 PM CDT us Hussein Mcguire NP CV CARDIAC SERVICES NV OCEDURES Final Result * TRANSTHORACIC ECHO (TTE) COMPLETE W DOPPLER/CF WO CONTRAST (03/01/2025 9:07 AM CDT) EF Mod BP 65 % CONS SCIMAGE Anatomical Region Laterality Modality Ultrasound 03/01/2025 8:33 AM CDT Narrative 03/01/2025 9:28 AM CDT [facility] Cardiac [place] [address] Transthoracic Echocardiographic Report Patient Name: BRITTNEE GUERRERO L : 1940 (84y 6m) Gender: F Study Date: 03/01/2025 08:33:29 AM Ht(Inch): 61 Wt(Lb): 119.93 BSA: 1.53 Calcine Furnace Loader: Claudia German RDCS, RCCS Location: [facility] Heart Rate: 66 BMI: 22.66 BP: 133 / 79 Ref Provider: PROCEDURES: Echocardiographic Report: Transthoracic complete echo with strain imaging, 2D, spectral and tissue Doppler, color flow Doppler, M-mode. INDICATIONS: I63.9 Cerebral infarction, unspecified. CONCLUSIONS: 1. Normal left ventricular size based on volume index. Concentric LV remodeling. Normal left ventricular systolic function. The Ejection Fraction (Luna's) is measured at 65 %. Grade II diastolic dysfunction (elevated mean LA pressure). The average global longitudinal strain is normal. 2. Normal right ventricular size. TV S'= 0.14 m/s (normal function). 3. The estimated pulmonary artery systolic pressure is 25.0 mmHg. No pulm HTN. ATTESTATION: I have personally reviewed and interpreted this study without fellow or resident. - DISCLAIMER: The study images and the final report will be retained in the patient chart by the Echo Laboratory for the legally required time period. This chart constitutes the legal record of any testing performed. FINDINGS: Left Ventricle: Normal left ventricular size based on volume index. Concentric LV remodeling. Normal left ventricular systolic function. The Ejection Fraction (Luna's) is measured at 65 %. Grade II diastolic dysfunction (elevated mean LA pressure). The average global longitudinal strain is normal. The LV global strain is: -19.0 %. Right Ventricle: Normal right ventricular size. TV S'= 0.14 m/s (normal function). Left Atrium: The left atrium is normal in size. Right Atrium: The right atrium is normal in size. Mitral Valve: Mild mitral annular calcification. Mild mitral valve regurgitation. The mitral valve area by pressure half-time is 2.3 cm2. The mean transmitral gradient is: 2 mmHg. Aortic Valve: Normal trileaflet aortic valve. No aortic regurgitation. The mean transaortic gradient is 4 mmHg. The aortic valve area by the continuity equation (using VTI) is 2.24 cm2. Aortic valve dimensionless index is 0.78. Tricuspid Valve: Normal tricuspid valve structure. Mild tricuspid regurgitation. The estimated pulmonary artery systolic pressure is 25.0 mmHg. No pulm HTN. Pulmonic Valve: Normal pulmonic valve structure. No pulmonic regurgitation. Pericardium: Normal pericardium without pericardial effusion. Aorta: Normal aortic root size at sinuses of Valsalva. Normal aortic root size when indexed. IVC: IVC is normal in size. MEASUREMENTS: 2D/MM Value Range Doppler Value Range LVIDd 2D 3.48 cm [ 3.80 - 5.20 ] AV Peak Nestor 1.3 m/s [ 1.0 - 1.7 ] LVIDs 2D 1.84 cm [ 2.20 - 3.50 ] AV Peak PG 6.76 mmHg IVSd 2D 1.24 cm [ 0.60 - 0.90 ] AV Mean PG 4 mmHg LVPWd 2D 1.11 cm [ 0.60 - 0.90 ] AV VTI 30.5 cm LV Thickness Ratio 1.1 LVOT Peak Nestor 0.9 m/s [ 0.7 - 1.1 ] LV FS 2D 47.05 % [ 27.00 - 45.00 ] LVOT Peak PG 3.24 mmHg LV Mass 2D 131.75 g LVOT Mean PG 2 mmHg LV Mass Index 2D 86.10 g/m2 LVOT VTI 23.9 cm RWT 0.64 LVOT Diam 1.91 cm EDV Mod BP 57.31 ml [ 46.00 - 106.00 ] DULCE VTI 2.24 cm2 LV EDV Index 37.45 ml/m2 LVOT/AV VTI 0.78 - Dimensionless index (DVI) ESV Mod BP 20.10 ml [ 14.00 - 42.00 ] MV E Peak Nestor 0.9 m/s [ 0.6 - 1.3 ] EF Mod BP 65 % [ 54 - 74 ] MV A Peak Nestor 1.2 m/s [ 1.0 - 1.2 ] LV GLS -19.0 % [ -25.0 - -18.0 ] MV E/A 0.8 ratio [ 0.8 - 1.5 ] LA Length 4C 4.81 cm MV Peak Nestor 1.2 m/s LA Length 2C 4.97 cm MV Peak PG 5.76 mmHg LA Volume BP 42.25 ml MV Mean PG 2 mmHg LA Volume Index 27.61 ml/m2 [ 16.00 - 34.00 ] MV VTI 30.2 cm RV Base Dimen 2D 2.7 cm [ 2.5 - 4.2 ] MV PHT 94.79 msec [ 20.00 - 100.00 ] TAPSE 1.96 cm [ 1.71 - 5.00 ] MVA PHT 2.32 cm2 RA Volume 21.80 ml MV Decel Time 308.30 msec [ 104.00 - 258.00 ] RA Volume Index 14.25 ml/m2 Med E` Nestor 5.2 cm/sec [ 8.0 - 25.0 ] IVC Diam 1.03 cm Lat E` Nestor 5.9 cm/sec [ 10.0 - 25.0 ] IVC Collapse 71 % Average E/E` 16.22 AoR Diam 2D 3.05 cm [ 2.70 - 3.70 ] RV S` 13.59 cm/sec Ao Root Index 1.99 cm/m2 [ 1.00 - 2.00 ] TR Peak Nestor 2.3 m/s [ 1.0 - 2.8 ] TR Peak PG 21.2 mmHg Electronically Signed By: Neo Gregory M.D. 03/01/2025 9:28:20 AM CDT Procedure Note Neo Gregory MD PhD - 03/01/2025 [facility] Cardiac [place] [address] Transthoracic Echocardiographic Report Patient Name: BRITTNEE GUERRERO L : 1940 (84y 6m) Gender: F Study Date: 03/01/2025 08:33:29 AM Ht(Inch): 61 Wt(Lb): 119.93 BSA: 1.53 Calcine Furnace Loader: Claudia German RDCS, RCCS Location: [facility] Heart Rate: 66 BMI:22.66 BP: 133 / 79 Ref Provider: PROCEDURES: Echocardiographic Report: Transthoracic complete echo with strain imaging,2D, spectral and tissue Doppler, color flow Doppler, M-mode. INDICATIONS: I63.9 Cerebral infarction, unspecified. CONCLUSIONS: 1. Normal left ventricular size based on volume index. Concentric LVremodeling. Normal left ventricular systolic function. The Ejection Fraction (Luna's) ismeasured at 65 %. Grade II diastolic dysfunction (elevated mean LA pressure). The averageglobal longitudinal strain is normal. 2. Normal right ventricular size. TV S'= 0.14 m/s (normal function). 3. The estimated pulmonary artery systolic pressure is 25.0 mmHg. No pulmHTN. ATTESTATION: I have personally reviewed and interpreted this study without fellow orresident. - DISCLAIMER: The study images and the final report will be retained in the patientchart by the Echo Laboratory for the legally required time period. This chart constitutesthe legal record of any testing performed. FINDINGS: Left Ventricle: Normal left ventricular size based on volume index.Concentric LV remodeling. Normal left ventricular systolic function. The EjectionFraction (Luna's) is measured at 65 %. Grade II diastolic dysfunction (elevated mean LApressure). The average global longitudinal strain is normal. The LV global strain is:-19.0 %. Right Ventricle: Normal right ventricular size. TV S'= 0.14 m/s (normalfunction). Left Atrium: The left atrium is normal in size. Right Atrium: The right atrium is normal in size. Mitral Valve: Mild mitral annular calcification. Mild mitral valveregurgitation. The mitral valve area by pressure half-time is 2.3 cm2. The mean transmitralgradient is: 2 mmHg. Aortic Valve: Normal trileaflet aortic valve. No aortic regurgitation. Themean transaortic gradient is 4 mmHg. The aortic valve area by the continuityequation (using VTI) is 2.24 cm2. Aortic valve dimensionless index is 0.78. Tricuspid Valve: Normal tricuspid valve structure. Mild tricuspidregurgitation. The estimated pulmonary artery systolic pressure is 25.0 mmHg. No pulm HTN. Pulmonic Valve: Normal pulmonic valve structure. No pulmonicregurgitation. Pericardium: Normal pericardium without pericardial effusion. Aorta: Normal aortic root size at sinuses of Valsalva. Normal aortic rootsize when indexed. IVC: IVC is normal in size. MEASUREMENTS: 2D/MM Value Range DopplerValue Range LVIDd 2D 3.48 cm [ 3.80 - 5.20 ] AV Peak Vel1.3 m/s [ 1.0 - 1.7 ] LVIDs 2D 1.84 cm [ 2.20 - 3.50 ] AV Peak PG6.76 mmHg IVSd 2D 1.24 cm [ 0.60 - 0.90 ] AV Mean PG4 mmHg LVPWd 2D 1.11 cm [ 0.60 - 0.90 ] AV VTI30.5 cm LV Thickness Ratio 1.1 LVOT Peak Vel0.9 m/s [ 0.7 - 1.1 ] LV FS 2D 47.05 % [ 27.00 - 45.00 ] LVOT Peak PG3.24 mmHg LV Mass 2D 131.75 g LVOT Mean PG2 mmHg LV Mass Index 2D 86.10 g/m2 LVOT VTI23.9 cm RWT 0.64 LVOT Diam1.91 cm EDV Mod BP 57.31 ml [ 46.00 - 106.00 ] DULCE VTI2.24 cm2 LV EDV Index 37.45 ml/m2 LVOT/AV VTI0.78 - Dimensionless index (DVI) ESV Mod BP 20.10 ml [ 14.00 - 42.00 ] MV E Peak Vel0.9 m/s [ 0.6 - 1.3 ] EF Mod BP 65 % [ 54 - 74 ] MV A Peak Vel1.2 m/s [ 1.0 - 1.2 ] LV GLS -19.0 % [ -25.0 - -18.0 ] MV E/A0.8 ratio [ 0.8 - 1.5 ] LA Length 4C 4.81 cm MV Peak Vel1.2 m/s LA Length 2C 4.97 cm MV Peak PG5.76 mmHg LA Volume BP 42.25 ml MV Mean PG2 mmHg LA Volume Index 27.61 ml/m2 [ 16.00 - 34.00 ] MV VTI30.2 cm RV Base Dimen 2D 2.7 cm [ 2.5 - 4.2 ] MV PHT94.79 msec [ 20.00 - 100.00 ] TAPSE 1.96 cm [ 1.71 - 5.00 ] MVA PHT2.32 cm2 RA Volume 21.80 ml MV Decel Mhpm475.30 msec [ 104.00 - 258.00 ] RA Volume Index 14.25 ml/m2 Med E` Vel5.2 cm/sec [ 8.0 - 25.0 ] IVC Diam 1.03 cm Lat E` Vel5.9 cm/sec [ 10.0 - 25.0 ] IVC Collapse 71 % Average E/E`16.22 AoR Diam 2D 3.05 cm [ 2.70 - 3.70 ] RV S`13.59 cm/sec Ao Root Index 1.99 cm/m2 [ 1.00 - 2.00 ] TR Peak Vel2.3 m/s [ 1.0 - 2.8 ] TR Peak PG 21.2 mmHg Electronically Signed By: Neo Gregory M.D. 03/01/2025 9:28:20 AM CDT Hussein Mcguire NP CV ECHO PROCEDURES Fin al Result * Dexa TBS Axial Skeleton Bone Density 1 or more sites (10/04/2023 10:29 AM CDT) Anatomical Region Laterality Modality Wrist, Body N/A Radiographic Sonali ging Narrative 10/09/2023 2:02 PM CDT Patient Name: Brittnee Guerrero Date of : 1940 Date of scan: 10/04/2023 Bone mineral density was performed on a HoloPWA Discovery Densitometer. Based on machine cross-calibration and [...] by the International Society of Clinical Densitometry. [id number] Felipa VargheseKarlie Khalil DNP IMG DXA PROCEDURES Final Result from Last 3 Months or Most Recently Relevant to Health Maintenance Insurance [facility]IC[facility] MEDICARE MEDICARE Member Subscriber Plan / Payer (Ef fective 2007-Present) Name:Brittnee Guerrero Amelie Member ID:[id number] Relation to Subscriber:Self Name:Brittnee Guerrero Amelie Subscriber ID:[id number] Payer ID:[id number] Group ID:Not on file Type:MEDICARE TRADITIONAL Address: [place] [id number] BLUE CROSS MEDICARE SUPPLEMENT MEDICARE BLUE CROSS MEDICARE SUPPLEMENT Advance Directives For more information, please contact: [phone] Documents on File Type Date Recorded Patient Children Teacher Expl anation ADVANCE DIRECTIVE 02/12/2025 5:04 PM HIPAA -[id number] -[id number].[email or web address] * Full Code (Latest Code Status on File) Date Activated Date Inactivated Comments 04/29/2023 3:07 PM 04/29/2023 9:54 PM Care Teams Manager Inpatient Relationship Specialty Start Date End Date Javier Dalal MD PCP - General Internal Medicine 04/16/22
--- OUTSIDE RECORDS SUMMARY | 2025-05-18 15:10 | XMS_ITS | Encounter Summary ---
Author Organization [facility] Address [address] [place] [address] Care Team Providers Care Exposure Machine Operator Name Role Phone Unavailable Primary Care Provider Unavailabl e Encounter Details Date Type Department Care Team (Latest Contact Info) Description 02/24/2007 Outpatient Historical [facility] Teddy Ross MD [address] [place] [address] Other Diseases of Nasal Cavity and Sinuses (Primary Dx) Social History Tobacco Use Types Packs/Day Years Used Date Smoking Tobacco: Never Assessed Comments Unknown Sex and Gender Information Value Date Recorded Sex Assigned at Not on file Legal Sex Female 3:48 AM 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 02/12/2007 12:1 3 PM CDT Teddy Ross MD CHEMISTRY ORDERABLES Edited Performing Organization Address [facility] Phone Number INTERFACE SYSTEM Refer to clinic/hospital department * HEMOGLOBIN AND HEMATOCRIT (02/12/2007 12:13 PM CDT) HEMOGLOBIN 14.0 11.8 - 14.8 g/dL INTERFACE SYSTEM HEMATOCRIT 40.0 35.5 - 44.0 % INTERFACE SYSTEM 02/12/2007 12:1 3 PM CDT Teddy Ross MD HEMATOLOGY ORDERABLES Edited Performing Organization Address [facility] Phone Number INTERFACE SYSTEM Refer to clinic/hospital department documented in this encounter Visit Diagnoses Diagnosis Other diseases of nasal cavity and sinuses(478.19)- Primary Other diseases of nasal cavity and sinuses documented in this encounter
--- OUTSIDE RECORDS SUMMARY | 2025-05-18 15:10 | XMS_ITS | Encounter Summary ---
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 Gender Identity Not on file Sexual Orientation Not on file Occupation Industry Job Start Date Job End Date Not on file Not on file Not on file Not on file documented as of this encounter Functional Status documented as of this encounter Plan of Treatment Not on file documented as of this encounter Procedures Procedure Name Priority Date/Time Associated Diagnosis Comments CBC W/ MANUAL DIFF (OUTSIDE) Routine 07/21/2018 CMP (OUTSIDE LAB) Routine 07/21/2018 TROPONIN, QUANT Routine 07/21/2018 documented in this encounter Results * TROPONIN, QUANT (07/21/2018) TROPONIN I <0.012 07/21/2018 us Sylvester Mcarthur MD LABORATORY Final Result * CMP [...] ABS. EOSINOPHILS 0.3 ABS. BASOPHILS 0.11 07/21/2018 us Sylvester Mcarthur MD LABORATORY Final Result documented in this encounter Visit Diagnoses Not on filedocumented in this encounter Care Teams Java Programmer Relationship Specialty Start Date End Date Sylvester Mcarthur MD PCP - General FAMILY PRACTICE 07/24/18 Maria Elena rOtiz MD CARDIOVASCULAR DISEASE 07/24/18 documented as of this encounter
--- OUTSIDE RECORDS SUMMARY | 2025-05-18 15:10 | XMS_ITS | Encounter Summary ---
Author Organization [facility] Healthcare Address [address] [place] [address] Care Team Providers Care Immigration Attorney Name Role Phone Javier Dalal MD Primary Care Provider [phone] Encounter Details Date Type Department Care Team (Late st Contact Info) Description 08/21/2022 Documentation [facility] OP Cardiac Testing [address] [place], [place] [id number] Kassy Felton, HEALTH CARE LAW SPECIALIST [address] [place] [address] Social History Tobacco Use Types Packs/Day Years [...] on file Legal Sex Female 10:43 AM 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 Barrientos this morning that pt is ordered for a stress echocardiogram although perDr. Barrientos's note it is written as echocardiogram not stress echo. Spoke with Dr. Barrientos who wishes to proceed with stress echo. GRAILS DEVELOPER documented in this encounter Plan of Treatment Not on file documented as of this encounter Visit Diagnoses Not on filedocumented in this encounter Care Teams Immigration Attorney Relationship Specialty Start Date End Date Javier Dalal MD PCP - General Internal Medicine 04/16/22 documented as of this encounter
--- OUTSIDE RECORDS SUMMARY | 2025-05-18 15:10 | XMS_ITS | Encounter Summary ---
Author Organization [facility] Address [address] [place] [address] Phone Care Team Providers Care Lead Project Engineer Name Role Phone Javier Dalal MD Primary Care Provider [phone] Encounter Details Date Type Department Care Team (Late st Contact Info) Description 03/18/2025 Results Follow-Up [facility] [address] [facility] [address] [place] [id number] Hussein Mcguire, [place] [address] [facility] [address] [place] [address] CTA Head Neck W WO Contrast Social History Tobacco Use Types Packs/Day Years Used Date Smoking Tobacco: Former Vaping Smokeless Tobacco: Never Alcohol Use Standard Drinks/Week [...] on file 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
== END 2025-05-18 13:11 | disposition home or self-care (01) ==
PROVIDERS: PCP Internal Medicine; Visit Provider Internal Medicine
DX: M81.0 Age-related osteoporosis without current pathological fracture (principal)
CPT/HCPCS: 96372; J0897

== ENCOUNTER 2025-05-20 14:45 | Outpatient (RCR) | payer MEDICARE, SELFPAY ==
--- NOTE | 2025-05-13 13:48 | PCPTNOTE ---
Patient did not show up for scheduled appointment this date. -Kajal Hassan, PT
--- NOTE | 2025-05-20 15:46 | OPREHPOC ---
Outpatient Therapy Plan of Care This is a Multidisciplinary Plan of Care that may contain components documented by all disciplines (PT, OT, and ST.) PT Problem 1 PT Problem #1 Knowledge Deficit PT Goal 1 Goal / Goal Update The patient will be independent in a home exercise program. Target Visit 4 PT Problem 2 PT Problem #2 Impaired Balance PT Goal 1 Goal / Goal Update The patient will improve Tinetti Balance Scale score to 24 indicating a lower fall risk. Target Visit 10 PT Problem 3 PT Problem #3 Impaired Strength PT Goal 1 Goal / Goal Update The patient will demonstrate at least 4/5 left hip strength to improve balance and endurance. Target Visit 10 PT Problem 4 PT Problem #4 Impaired Functional Mobility PT Goal 1 Goal / Goal Update The patient will demonstrate hands free independence with sit to stand transfers to improve functional mobility. The patient will ambulate 1,000 feet during the 6 MWT to improve community ambulation. Target Visit 10 PT Problem 5 PT Problem #5 Pain PT Goal 1 Goal / Goal Update The patient will report no greater than 3/10 left hip pain. Target Visit 10
--- NOTE | 2025-05-20 15:46 | PTOPEVAL1 ---
Assessment and note entered by Kajal Hassan, PT Evaluation Information Assessment Status Evaluation Diagnosis CVA, L hip pain ICD-10 Condition Codes (PT) Pain in left hip M25.552,Weakness R53.1 Other ICD-10 Condition Codes ( I63.9, R26.89, R53.1 PT) Onset 01/27/25 Subjective Information Brittnee Guerrero reports she has been having left hip pain for several years. She reports she started having pain after falling and breaking her pelvis approximately 4-5 years. She did not have any PT after the fall. She also had a mild stroke recently but did not have to be hospitalized. She has had a lot of testing at [place] recently and a MRI of her head showed the stroke. She has intermittent left hip pain that occurs when she moves too much. She notes pain on the side of the left hip that radiates across her back. She is using a lidocaine patch for pain as needed. She has had falls in the past with the last one occurring in November 2024. She reports she passed out and then fell and hit her head. She reports she got really dizzy prior to passing out. She has not been experiencing dizziness recently. Reported Pain Level Pain Score 7: Self Report Assessment PT Clinical Summary Brittnee Guerrero presents with left sided weakness following a CVA and left hip pain. The patient is a poor historian and does not know when her CVA was or the last time she fell. She has difficulty with moving her left hip to the side and exercising. She objectively demonstrates decreased and painful left hip AROM, decreased left hip and knee strength, tenderness on the left greater trochanter and gluteal muscles, positive special tests indicating hip bursitis, and decreased balance. She is a high fall risk currently. She will benefit from skilled PT to address these limitations. Plan of Care Interventions Electrical Stimulation,Gait Training,Hot Pack/Cold Pack,Manual Therapy,Neuro Re-education,Patient/ Caregiver Education,Therapeutic Activities, Therapeutic Exercise,Self-Care/Home Management PT Services Indicated Yes Treatment Frequency and 2 times a week for 10 visits Duration These treatments will address the objective and functional deficits as defined above. The patient will be advanced safely and appropriately in order for the patient to progress towards his/her prior level of function. Additional exercises will be introduced and as well as a comprehensive home exercise program upon discharge, if needed, ?to ensure carryover of functional gains achieved in the clinic. This treatment plan has been reviewed and agreement upon by the patient.
--- NOTE | 2025-06-29 13:58 | PCPTNOTE ---
Patient did not show up for scheduled appointment this date. -Kajal Hassan, PT
--- NOTE | 2025-06-30 10:01 | PCPTNOTE ---
Patient called & cancelled scheduled appointment this date due to unable to make it in. -Kajal Hassan, PT
--- NOTE | 2025-07-06 14:24 | PTOPDC ---
Assessment and note entered by Fartun Shields DPT Evaluation Information Assessment Status Discharge Diagnosis CVA, L hip pain ICD-10 Condition Codes (PT) Pain in left hip M25.552,Weakness R53.1 Other ICD-10 Condition Codes ( I63.9, R26.89, R53.1 PT) Onset 01/27/25 Subjective Information Christiane reports that her pain has decreased significantly. She reports she is able to sleep without increase in pain. She also reports she can walk longer distances without increase in pain. She reports she does not do her exercises as much as she should. Reported Pain Level Pain Score 0: Self Report Assessment PT Clinical Summary Mrs. Guerrero has been seen for 10 visits of skilled PT. She has made good progress towards goals. Pain has decreased since start of therapy as well as ability to ambulate prolonged distances and sleeping. She has reports of highest pain at 4/10 but this occurs when she is really active out in the yard. Patient has been educated on continued HEP to maintain functional gains and is appropriate for DC at this time. Plan of Care PT Services Indicated No
== END 2025-07-06 20:00 | disposition home or self-care (01) ==
LOC: CHSPT 14:45
DX: I63.9 Cerebral infarction, unspecified (principal); R26.89 Other abnormalities of gait and mobility; R53.1 Weakness
CPT/HCPCS: 97014; 97110; 97112; 97140; 97161; G0283